=== PATIENT | female | born 1985 | race Caucasian/White ===

== ENCOUNTER → 2017-05-04 12:21 | Outpatient (CLI) | payer MEDICAID, SELFPAY ==
[2017-05-04 12:41] LABS: Basophils # 0.1 K/mm3 (0-0.2); Basophils % 1.1 % (0.1-2.0); Eosinophils # 0.2 K/mm3 (0.0-0.4); Eosinophils % 2.7 % (0.1-12.0); Hematocrit 44.2 % (37.0-47.0); Hemoglobin 14.8 g/dL (12.2-16.2); Lymphocytes # 2.5 K/mm3 (0.7-4.5); Mean Corpuscular HGB Conc 33.6 g/dL (31.8-35.4); Mean Corpuscular Hemoglobin 30.4 pg (27.0-31.2); Mean Corpuscular Volume 90.4 fl (81-99); Mean Platelet Volume 12.1 fl (7.4-10.4); Monocytes # 0.3 K/mm3 (0.1-1.0); Monocytes % 4.2 % (1.7-9.3); Neutrophils # 4.1 K/mm3 (1.8-7.8); Platelet Count 146 K/mm3 (142-424); Red Blood Count 4.89 M/mm3 (4.20-5.40); Red Cell Distribution Width 11.9 % (11.5-17.5); White Blood Count 7.2 K/mm3 (4.8-10.8)
[2017-05-04 14:40] LABS: Alanine Aminotransferase 22 U/L (12-78); Albumin Level 4.2 gm/dL (3.4-5.0); Albumin/Globulin Ratio 1.3 (1.1-1.8); Alkaline Phosphatase 85 U/L (46-116); Anion Gap 15.2 mEq/L (5-15); Aspartate Amino Transferase 10 U/L (15-37); Bilirubin,Total 0.4 mg/dL (0.2-1.0); Blood Urea Nitrogen 11 mg/dL (7-18); Calcium 9.2 mg/dL (8.5-10.1); Carbon Dioxide 27 mmol/L (21.0-32.0); Chloride 105 mmol/L (98-107); Creatinine,Serum 0.57 mg/dL (0.55-1.02); Estimated Glomerular Filt Rate 123 ml/min (>60); GFR (African American) 149 ML/MIN (>60); Globulin 3.2 gm/dl (1.3-3.2); Glucose 84 mg/dL (74-106); Potassium 5.2 mmoL/L (3.5-5.1); Sodium 142 mmol/L (136-145); T4 (Thyroxine) 7.2 ug/dl (4.7-13.3); Thyroid Stimulating Hormone 1.43 uIU/ml (0.358-3.740); Total Protein,Serum 7.4 gm/dL (6.4-8.2)
== END ==
PROVIDERS: PCP Nurse Practitioner Family; Visit Provider Nurse Practitioner Family
DX: R61 Generalized hyperhidrosis (principal)
CPT/HCPCS: 80053; 84436; 84443; 85025

== ENCOUNTER → 2018-02-20 15:46 | Outpatient (CLI) | payer MEDICAID, SELFPAY ==
--- NOTE | 2018-02-20 15:48 | XR_ITS ---
EXAM: XR lumbar spine 2-3V HISTORY: ITS.REASON: Low Back Pain ORDERING PHYSICIAN: Bruce Mora PATIENT AGE: 32 years COMPARISON: None FINDINGS: Normal alignment. No fracture or dislocation. No lytic or blastic change. No significant degenerative change. The disc spaces are preserved. IMPRESSION: No acute finding
== END ==
PROVIDERS: PCP Nurse Practitioner Family; Visit Provider Nurse Practitioner Family
DX: M54.5 Low back pain (principal)
CPT/HCPCS: 72100

== ENCOUNTER → 2020-07-10 07:50 | Outpatient (CLI) | payer OTHER, SELFPAY ==
--- NOTE | 2020-07-10 07:50 | US_ITS ---
PROCEDURE: US TRANSVAGINAL CLINICAL INDICATION: heavy bleeding COMPARISON: US TVP US TRANSVAGINAL PREG from 06/22/2013 FINDINGS: UTERUS: 8 x 5cmx 4cm with a combined endometrial thickness of 6.3mm LEFT OVARY: 3cmx1.4x1.9cm with a volume of 3.45 mL. RIGHT OVARY: 2cmx [id number] with a volume of 3.4ml. Mild focal hyperechoic lesions are noted adjacent to the endometrium measuring up to 0.4 centimeters, may represent polyps. Focal anechoic lesions are noted in the right ovary measuring up to 2 centimeters, likely represents ovarian cyst. Vascularity of the ovaries bilaterally are within normal limits. No free fluid in the pelvic cul-de-sac. IMPRESSION: Possible endometrial polyps measuring up to 0.4 centimeters. Ovarian cyst measuring 2 centimeters. Dictated by: Aydee Solares 07/10/2020 11:22 Aydee Solares in OV 07/10/2020 11:22
== END ==
PROVIDERS: PCP Nurse Practitioner Family; Visit Provider Nurse Practitioner Obstetrics & Gynecology
DX: N92.0 Excessive and frequent menstruation with regular cycle (principal)
CPT/HCPCS: 76830

== ENCOUNTER → 2020-08-12 16:05 | Outpatient (CLI) | payer OTHER, SELFPAY ==
[2020-08-12 17:22] LABS: Basophils # 0.1 K/mm3 (0-0.2); Basophils % 0.9 % (0.1-2.0); Eosinophils # 0.2 K/mm3 (0.0-0.4); Eosinophils % 2.5 % (0.1-12.0); Hematocrit 42.7 % (37.0-47.0); Hemoglobin 14.3 g/dL (12.2-16.2); Lymphocytes # 3.3 K/mm3 (0.7-4.5); Mean Corpuscular HGB Conc 33.5 g/dL (31.8-35.4); Mean Corpuscular Hemoglobin 30.8 pg (27.0-31.2); Mean Corpuscular Volume 91.9 fl (81-99); Mean Platelet Volume 12.3 fl (7.4-10.4); Monocytes # 0.5 K/mm3 (0.1-1.0); Neutrophils # 5.5 K/mm3 (1.8-7.8); Neutrophils % 57.6 % (37.0-80.0); Platelet Count 178 K/mm3 (142-424); Red Blood Count 4.65 M/mm3 (4.20-5.40); Red Cell Distribution Width 12.4 % (11.5-17.5); White Blood Count 9.6 K/mm3 (4.8-10.8)
[2020-08-12 17:58] LABS: Anion Gap 11.1 mEq/L (5-15); Blood Urea Nitrogen 12 mg/dl (7-17); Calcium 9.6 mg/dl (8.4-10.2); Carbon Dioxide 26 mmol/L (22.0-30.0); Chloride 105 mmol/L (98-107); Estimated Glomerular Filt Rate 114 ml/min (>60); GFR (African American) 138 ML/MIN (>60); Glucose 92 mg/dl (74-100); Potassium 4.1 mmoL/L (3.5-5.1); Sodium 138 mmol/L (136-145)
[2020-08-12 18:04] LABS: HCG Qualitative, Serum Negative (Negative)
[2020-08-12 18:16] LABS: Coronavirus 19 IgG Antibody Negative (Negative); Coronavirus 19 IgM Antibody Negative (Negative)
== END ==
PROVIDERS: Visit Provider Nurse Practitioner Obstetrics & Gynecology
DX: Z01.818 Encounter for other preprocedural examination (principal); Z11.52 Encounter for screening for COVID-19; N92.0 Excessive and frequent menstruation with regular cycle
CPT/HCPCS: 36415; 80048; 84703; 85025; 86328

== ENCOUNTER 2020-08-14 08:00 | Day surgery (SDC) | payer OTHER, SELFPAY ==
[2020-08-12 09:20] VITALS: BMI 24.5
[2020-08-14] VITALS (10 sets, daily range): BP systolic 107–144; BP diastolic 63–83; PULSE 59–80; RESP 10–18; TEMP 36.2–36.6; O2SAT 96–100
--- NOTE | 2020-08-14 10:32 | P.OP_ITS ---
Date of procedure: 08/14/20 Pre-op Diagnosis:: Menorrhagia Post-op Diagnosis:: Menorrhagia Procedure performed:: Hysteroscopy, NovaSure ablation Surgeon:: Yannick Knutson MD [employer]:: Other (Jared Wood) Anesthesia: LMA Estimated blood loss (mL): 50 Clinical Note:: She is a 34-year-old lady who complains of extremely heavy periods. After having discussed the risks and benefits she elected to have a hysteroscopy and NovaSure ablation. Operative findings:: She had a normal-appearing anteverted uterus. The uterus sounded to 8 cm. The width was 4.5 cm. She had a normal-appearing endometrium. Both tubal ostia were seen. Operative note:: She was taken to the operating room where LMA anesthesia was found be adequate. She was prepped and draped in the normal sterile fashion in the lithotomy position. A weighted speculum was placed in the vagina and the anterior lip of the cervix was grasped with a tenaculum. The cervix was then dilated to approximately 6 mm. I then inserted a hysteroscope into the uterine cavity and the findings were as previously dictated. . I then sounded the uterus and determine the length of the uterus. This was placed into the NovaSure device. The uterus was found to be 8 cm long. The length of the uterine cavity was 6 cm. The width was 4.5 cm. I then inserted the NovaSure device and determine the width of the endometrial cavity. I then ran the device through its program. I further inspected the endometrial cavity and was found to be completely c harred. I then injected 30 cc of 0.5% ropivacaine at the 3:00, 5:00, 7:00, and 9:00 positions of the cervix. She tolerated procedure well and was taken to the recovery room in excellent condition. All sponge and instrument counts were correct. The estimated blood loss was less than 50 cc. Condition: stable Disposition: PACU Specimens:: None Complications:: None
--- NOTE | 2020-08-14 12:01 | HMH.ANESCL ---
[facility] Anesthesia Checklist - Patient Identification Patient Identification: Arm Band - Structural Data Admitted From: Home Planned Operative Procedure/s: Hysteroscopy D & C, Novasure ablation Consent for Planned Operative Procedure(s) Verified: Yes Verified Documents: Surgical Consent, History and Physical - NPO Status Verified Time NPO: 00:00 - Additional verifications Anesthesia Reactions: No Hx Blood Transfusions: No Blood Transfusion Reaction: No - Anesthesia Plan Anesthesia Risk discussed: Yes Anesthesia Plan: Verified ASA Class: II Anesthesia Type: General [facility] History Medical History: Reports:: Seizures Denies:: Cancer, Diabetes Mellitus Type 1, Diabetes Mellitus Type 2, Internal Pacemaker, MRSA *Have you ever received a pneumonia vaccine?: No *Have you received a flu vaccine this season?: No Other Medical History: Denies: Blood Transfusion Reaction Anesthesia experience/problems:: None Other Surgeries: Yes: Cholecystectomy, , Tubal Ligation, Other. No: Pacemaker Amputation: No Fractures: No - *Social History Last grade of school completed: GED Smoking Status: Current every day smoker Tobacco Type: cigarettes # Packs/Day (cigarettes): 1 Alcohol Intake: current Alcohol Intake Frequency:: a few times a month Substance Use Type: denies use *Occupational Status:: employed Housing: house Household Members: significant other, family, children *Travel in the last 8 weeks: None Family Hx:: Diabetes
--- NOTE | 2020-08-14 12:02 | P.PN_ITS ---
[facility] Anesthesia Record Part I Intake, IV Amount: 800 Estimated blood loss (mL): 50 Urine output (mL): 0 Blood Products used (#): none Blood Pressure: 107/66 SaO2: 99 Pulse Rate: 71 Respiratory Rate: 10 Temperature: 97.3 F Patient is:: Awake, Drowsy Stable to PACU at:: 10:47
--- NOTE | 2020-08-17 11:19 | HMH.ANESII ---
[facility] Anesthesia Record Part II Discharge Time: 11:17 Destination: Surgical Day Care (OP Surgery) PACU nurse assessment reviewed?: Yes Patient Condition:: Good Anesthesia Complications:: None Swallowing reflex intact?: Yes Cyanosis?: No Blood Pressure: 129/82 Pulse Rate: 68 Temperature: 97.3 F Mental Status: Alert & Oriented Pain level:: 0 Nausea and/or vomitting:: None Intake, IV Amount: 0
[2020-08-17 11:20] VITALS: BP 129/82; PULSE 68; TEMP 36.3
== END 2020-08-14 11:48 | disposition home or self-care (01) ==
LOC: OR 08:02
PROVIDERS: PCP Nurse Practitioner Family; Visit Provider Nurse Practitioner Obstetrics & Gynecology
PROC: 0U5B8ZZ Destruction of Endometrium, Via Natural or Artificial Opening Endoscopic (ICD-10-PCS; CPT 58563; principal; 2020-08-14 09:45)
DX: N92.0 Excessive and frequent menstruation with regular cycle (principal); R56.9 Unspecified convulsions; Z72.0 Tobacco use
CPT/HCPCS: 58563; 96374; J2405

== ENCOUNTER 2020-10-27 07:50 | Emergency (ER) | payer OTHER, SELFPAY ==
[2020-10-27 07:50] VITALS: BP 116/82; PULSE 96; RESP 18; TEMP 36.7; O2SAT 98; BMI 23.8
[2020-10-27 08:14] LABS: Adenovirus,PCR Not Detected (NotDetected); Bordetella Pertussis Not Detected (NotDetected); Chlamydophila Pneumoniae, PCR Not Detected (NotDetected); Coronavirus 19, PCR Not Detected (NotDetected); Coronavirus 229E Not Detected (NotDetected); Coronavirus NL63 Not Detected (NotDetected); Coronavirus OC43 Not Detected (NotDetected); Coronovirus HKU1,PCR Not Detected (NotDetected); Human Metapneumovirus Not Detected (NotDetected); Influenza A, PCR Not Detected (NotDetected); Influenza AH1, 2009 Not Detected (NotDetected); Influenza AH1, PCR Not Detected (NotDetected); Influenza AH3,PCR Not Detected (NotDetected); Influenza B, PCR Not Detected (NotDetected); Mycoplasma Pneumoniae, PCR Not Detected (NotDetected); Parainfluenza 1, PCR Not Detected (NotDetected); Parainfluenza 2, PCR Not Detected (NotDetected); Parainfluenza 3, PCR Not Detected (NotDetected); Parainfluenza 4, PCR Not Detected (NotDetected); Respiratory Syncytial Virus Not Detected (NotDetected)
--- NOTE | 2020-10-27 08:14 | HMH.EDGENADL ---
ED Disposition Clinical Impression: Upper respiratory infection Qualifiers: URI type: unspecified URI Qualified Code(s): J06.9 - Acute upper respiratory infection, unspecified Disposition: Home, Self-Care Condition on Discharge: Fair Instructions: DI for Acute Bronchitis, DI for Nasal Congestion Additional Instructions: You have been evaluated for upper respiratory infection. Strep is negative. We will call you with results of the respiratory viral panel. You have been tested for COVID-19. Please self isolate and quarantine. Other viruses are possibly contagious. Please do not go to work until you are feeling better and no longer contagious. Follow-up with your primary care doctor. Prescriptions: Cetirizine HCl 10 mg PO DAILY #30 tab Transmission Status: Pending to [id number] Referrals: Carlos Palma APRN [Primary Care Provider] - Forms: Work/School Release Time of Disposition: 09:06 - Critical Care Critical Care Time: No Attestation: On , the high probability of a clinically significant, sudden or life threatening deterioration of the following system(s) required my full and direct attention, intervention and personal management. The time I documented below is in addition to time spent performing reported procedures but includes the following listed in this critical care notation. Medical Decision Making - Medical Records Medical records reviewed: Yes: I reviewed the patient's medical records. - Keenan Inquiry Pt receiving controlled substance: No Vital Signs: 10/27/20 07:50 Temperature 98.1 F Temperature Source Oral Pulse Rate [Left] 96 H Respiratory Rate 18 Blood Pressure [Right Arm] 116/82 Blood Pressure Mean [Right Arm] 93 Blood Pressure Source [Right Arm] Automatic Cuff 02 Sat by Pulse Oximetry 98 Oxygen Delivery Method Room Air - Lab Data Lab Results 10/27/20 08:15: Group A Strep Rapid Negative Orders (Tests/Meds): ED MEDICATIONS Discontinued Medications Generic Name Dose Route Start Last Admin Trade Name Freq PRN Reason Stop Dose Admin Acetaminophen 325 mg 10/27/20 08:04 10/27/20 08:14 Acetaminophen 325mg Tab PO 10/27/20 08:05 325 mg ONCE ONE Administration Ondansetron HCl 4 mg 10/27/20 08:04 10/27/20 08:14 Ondansetron 4mg Odt SL 10/27/20 08:05 4 mg ONCE ONE Administration ORDERS Category Date Time Status Full Resp Panel w/COVID ([facility]) Routine Lab 10/27/20 07:55 Received Strep Screen Confirmation Stat Micro 10/27/20 08:15 Received Medical Decision Narrative: In summary this is a 35-year-old female presenting to the emergency department with sinus congestion and dry cough. Clinically stable on arrival. Vital signs within normal limits. Most likely diagnosis is viral upper respiratory infection. Cannot exclude strep pharyngitis. 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 Will obtain rapid strep and respiratory viral panel. Rapid strep negative. On reassessment patient clinically stable in the emergency department. Respiratory viral panel takes a few hours for results. Counseled her that we will call her with results. She should self isolate and quarantine. She has been tested for COVID-19. Other viruses may be contagious like RSV. She should not go to work today. Should not go to work tomorrow or longer if RVP positive. General Adult HPI - General Stated complaint: headache, congestion Time Seen by Provider: 10/27/20 08:04 Mode of Arrival: Ambulatory Limitations: No Limitations Description of Symptoms (Recalled from ER Triage Doc. by RN): patient to ED for sore throat and sinus congestion since monday. patient states i feel like my throat is on fire. - History of Present Illness HPI narrative: 35-year-old female presenting to the emergency department with cough, congestion, sore throat. Symptoms started 2 to 3 days ago. She had runny nose and sinus congestion. Now feels
[2020-10-27 08:31] LABS: Strep Scrn Group A (Rapid) Negative (Negative)
[2020-10-27 09:16] VITALS: BP 105/76; PULSE 84; RESP 16; TEMP 36.7; O2SAT 99
[2020-10-27 09:34] LABS: Rhinovirus/Enterovirus Detected (NotDetected)
--- NOTE | 2020-10-27 10:03 | PC.NURSE ---
called patient to inform her the results of her PCR panel. patient states that she will rest and keep hydrated.
== END 2020-10-27 09:17 | disposition home or self-care (01) ==
PROVIDERS: Emergency Provider Emergency Medicine; PCP Nurse Practitioner Family
DX: J06.9 Acute upper respiratory infection, unspecified (principal); R56.9 Unspecified convulsions; F17.210 Nicotine dependence, cigarettes, uncomplicated
CPT/HCPCS: 87430; 87581; 87633; 87798; 99282

== ENCOUNTER 2020-12-03 09:00 | Emergency (ER) | payer OTHER, SELFPAY ==
[2020-12-03 09:01] VITALS: BP 135/75; PULSE 80; RESP 18; TEMP 36.7; O2SAT 98; BMI 24.1
[2020-12-03 09:25] VITALS: BP 133/71; PULSE 84; RESP 18; TEMP 36.8; O2SAT 98
--- NOTE | 2020-12-03 09:25 | HMH.EDUTC ---
[facility] [place] Clinical Impression: Encounter for laboratory testing for COVID-19 virus Disposition: Home, Self-Care Condition on Discharge: Good Instructions: DI for COVID-19 (Suspected or Confirmed ), Coronavirus Disease 2019, Preventing the Spread of Coronavirus Discharge Instructions Additional Instructions: *Monitor Temp, Over the counter Motrin or Tylenol as directed/as needed Tylenol every 4 hours and Motrin every 6 hours (as long as your family doctor has told you that you can take it) for fever or pain. and straight to ER if unable to lower temp less than 101.0 after medication given Follow up IMMEDIATELY for new or worsening symptoms or no Noticeable improvement over the next 48-72 hours. 911 for difficulty breathing or swallowing You were tested for today for COVID19 your test result should be back in the next 24-48 hours, you may call to the [facility] to see if your test results are back in the next 48 hours [phone] [facility] hours are 9am-9pm You was given a handout with instructions for Self Quarantine and Self isolation for while you wait on test results and what to do if they are positive If you are positive the Health Dept will be contacting you also Make sure to take your Vitamins Vit. C Vit D and Zinc if you can take them Referrals: Carlos Palma APRN [Primary Care Provider] - As needed Forms: Work/School Release Time of Disposition: : Medical Decision Making - Keenan Inquiry Pt receiving controlled substance: No Keenan was queried for this patient: No Vital Signs: 12/03/20 09:01 Temperature 98.1 F Temperature Source Oral Pulse Rate [Right] 80 Respiratory Rate 18 Blood Pressure [Right Arm] 135/75 Blood Pressure Mean [Right Arm] 95 02 Sat by Pulse Oximetry 98 Orders (Tests/Meds): ORDERS Category Date Time Status Covid-19 Nasal PCR ([facility]) Routine Lab 12/03/20 09:24 Ordered [facility] [place]PI - General Stated complaint: covid test Time Seen by Provider: 12/03/20 09:25 Mode of Arrival: Family Vehicle Source of Information: Patient Limitations: No Limitations Description of Symptoms (Recalled from Triage Doc. by RN): Patient here for COVID swab. Patient denies any symptoms. Needs clearance for work. HEENT Symptoms (Recalled from RN notes): No Resp Symptoms (Recalled from RN notes): No Skin Symptoms (Recalled from RN notes): No MS Symptoms (Recalled from RN notes): No Functional Status (Recalled from RN notes): na - History of Present Illness Provider Complaint: Patient state that she was recently around student who tested positive for COVID states that they have had her on quarantine and she had to get a neg COVID test before she can return Denies symptoms - Related Data Previous Rx's Medication Instructions Recorded Oxycodone HCl/Acetaminophen 1 tab PO Q4-6H PRN #12 tab 08/14/20 [Percocet 5/325mg tablet] Cetirizine HCl 10 mg PO DAILY #30 tab 10/27/20 Allergies Allergy/AdvReac Type Severity Reaction Status Date / Time hydromorphone [HYDROMORPHONE] Allergy Unknown Verified 08/27/20 08:16 - Worker's Comp Is this a Worker's Comp case?: No Is this an [facility] Worker's Comp?: No Is this a [place] Worker's Comp?: No H History - Hepatitis A Screen Drug use history?: No High risk sexual behaviors?: No History of sexually transmitted infection?: No Currently employed?: No Childcare worker?: No Do you have indoor plumbing?: Yes Do you have electricity?: Yes Attestation statement:: This patient has been screened for Hepatitis A risk factors. I have reviewed the patient's past medical history: Yes Medical History: Reports:: Seizures Denies:: Cancer, Diabetes Mellitus Type 1, Diabetes Mellitus Type 2, Internal Pacemaker, MRSA Other Medical History: Denies: Blood Transfusion Reaction Other Surgeries: Yes: Cholecystectomy, , Tubal Ligation, Other. No: Pacemaker Amputation: No Fractures: No - Social History Smoking Status: Current every day smoker Maxi
== END 2020-12-03 09:30 | disposition home or self-care (01) ==
PROVIDERS: Emergency Provider Nurse Practitioner; PCP Nurse Practitioner Family
DX: Z20.822 Contact with and (suspected) exposure to COVID-19 (principal); F17.210 Nicotine dependence, cigarettes, uncomplicated
CPT/HCPCS: 99202; G0463; U0003

== ENCOUNTER 2020-12-22 08:07 | Emergency (ER) | payer OTHER, SELFPAY ==
[2020-12-22 08:09] VITALS: BP 105/77; PULSE 94; RESP 18; TEMP 36.7; O2SAT 98; BMI 23.8
--- NOTE | 2020-12-22 08:11 | HMH.EDGENADL ---
ED Disposition Clinical Impression: Viral illness Disposition: Left Without Being Seen Condition on Discharge: Good Referrals: Carlos Palma APRN [Primary Care Provider] - Time of Disposition: 10:50 ([place]) - Critical Care Critical Care Time: No Attestation: On , the high probability of a clinically significant, sudden or life threatening deterioration of the following system(s) required my full and direct attention, intervention and personal management. The time I documented below is in addition to time spent performing reported procedures but includes the following listed in this critical care notation. Medical Decision Making - Medical Records Medical records reviewed: Yes: I reviewed the patient's medical records. - Keenan Inquiry Pt receiving controlled substance: No Vital Signs: 12/22/20 08:09 Temperature 98.1 F Temperature Source Oral Pulse Rate [Right Radial] 94 H Respiratory Rate 18 Blood Pressure [Right Arm] 105/77 L Blood Pressure Mean [Right Arm] 86 Blood Pressure Source [Right Arm] Automatic Cuff Blood Pressure Position [Right Arm] Sitting 02 Sat by Pulse Oximetry 98 Oxygen Delivery Method Room Air Orders (Tests/Meds): ORDERS Category Date Time Status Rapid PCR Covid and Flu A/B Stat Lab 12/22/20 08:10 Ordered Strep Scrn Group A (Rapid) Stat Lab 12/22/20 08:20 Received Medical Decision Narrative: 35yo F evaluated for sore throat and fever. Covid swab, flu swab, strep screen are ordered. Patient's physical exam is unremarkable other than lesions to oral mucosa. Went to f/u with pt but she was not in her room. She didn't say anything to staff about stepping out or leaving. General Adult HPI - General Stated complaint: fever, chills, oral blisters Time Seen by Provider: 12/22/20 08:11 Mode of Arrival: Ambulatory - History of Present Illness HPI narrative: 35yo F that denies significant past medical history presents the emergency department secondary to sore throat, mild cough, postnasal drip. She denies myalgia. Reports a fever of 100.3. 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 Patient smokes daily. Took Tylenol at home prior to arrival. Symptoms began in the afternoon yesterday. - Related Data Previous Rx's Medication Instructions Recorded Oxycodone HCl/Acetaminophen 1 tab PO Q4-6H PRN #12 tab 08/14/20 [Percocet 5/325mg tablet] Cetirizine HCl 10 mg PO DAILY #30 tab 10/27/20 Allergies Allergy/AdvReac Type Severity Reaction Status Date / Time hydromorphone [HYDROMORPHONE] Allergy Unknown Verified 08/27/20 08:16 [facility] History - Hepatitis A Screen Drug use history?: No Attestation statement:: This patient has been screened for Hepatitis A risk factors. I have reviewed the patient's past medical history: Yes Medical History: Reports:: Seizures Denies:: Cancer, Diabetes Mellitus Type 1, Diabetes Mellitus Type 2, Internal Pacemaker, MRSA Other Medical History: Denies: Blood Transfusion Reaction Other Surgeries: Yes: Cholecystectomy, , Tubal Ligation, Other. No: Pacemaker Amputation: No Fractures: No - Social History Smoking Status: Current every day smoker Tobacco Type: cigarettes # Packs/Day (cigarettes): 1 Alcohol Intake: current Alcohol Intake Frequency:: a few times a month Substance Use Type: denies use Occupational Status: employed Housing: house Household Members: significant other, family, children Family Hx:: Diabetes ROS Obtained: Yes Systems reviewed as appropriate & no additional complaints Physical Exam - General General appearance: alert, in no apparent distress - Head Head exam: atraumatic - Eye Eye exam: Present: normal appearance - ENT ENT exam: Present: mucous membranes moist, TM's normal bilaterally, normal external ear exam, other (lesion/blister to roof of mouth, erythema and few lesions to posterior pharynx) - Neck Neck exam: Present: normal inspection, full ROM, trachea midline. Absent: tenderne
[2020-12-22 10:30] VITALS: BP 124/78; PULSE 89; RESP 16; TEMP 36.7; O2SAT 97
== END 2020-12-22 10:31 | disposition left against medical advice (07) ==
PROVIDERS: Emergency Provider Family Medicine; PCP Nurse Practitioner Family
DX: Z53.21 Procedure and treatment not carried out due to patient leaving prior to being seen by health care provider (principal)
CPT/HCPCS: 99211

== ENCOUNTER → 2020-12-22 19:57 | Outpatient (CLI) | payer OTHER, SELFPAY | PROVIDERS: Visit Provider Nurse Practitioner Family | DX: Z20.822 Contact with and (suspected) exposure to COVID-19 (principal) | CPT/HCPCS: C9803; U0003; U0005 ==

== ENCOUNTER → 2021-04-10 14:43 | Outpatient (CLI) | payer OTHER, SELFPAY | PROVIDERS: PCP Nurse Practitioner Family; Visit Provider Nurse Practitioner Family | DX: U07.1 COVID-19 (principal) | CPT/HCPCS: C9803; U0003; U0005 ==

== ENCOUNTER 2021-04-16 13:50 | Emergency (ER) | payer OTHER, SELFPAY ==
[2021-04-16 13:52] VITALS: BP 102/79; PULSE 62; RESP 18; TEMP 37; O2SAT 100; BMI 23.8
[2021-04-16 14:12] VITALS: BMI 23.8
--- NOTE | 2021-04-16 14:13 | CT_ITS ---
FINAL REPORT TECHNIQUE: Thin section axial images were obtained from the lung bases to the pubic symphysis without IV contrast. CLINICAL HISTORY: left flank pain FINDINGS: There is an obstructing 3 mm distal left ureteral stone with moderate hydronephrosis. There is a nonobstructing left renal stone. There are no right renal or ureteral stones or hydronephrosis. There has been cholecystectomy. The remaining unenhanced solid abdominal organs are unremarkable. There is no evidence of small bowel obstruction. The appendix is not identified but there are no secondary signs suggesting appendicitis. There is diverticulosis without evidence of diverticulitis. There is no lymphadenopathy. There is physiologic free fluid. No acute osseous abnormality is identified. IMPRESSION: Obstructing 3 mm distal left ureteral stone. Nonobstructing left renal stone. Reviewed, Interpreted and Dictated by Akiko Rapp MD Transcribed by Steven Foss Authenticated by Akiko Rapp MD on 04/16/2021 03:50:57 PM [facility]
[2021-04-16 14:33] LABS: Alanine Aminotransferase 16 U/L (12-78); Albumin Level 4.5 g/dl (3.5-5.0); Albumin/Globulin Ratio 1.5 (1.1-1.8); Alkaline Phosphatase 80 U/L (38-126); Anion Gap 14.6 mEq/L (5-15); Aspartate Amino Transferase 22 U/L (14-36); Bilirubin,Total 0.7 mg/dl (0.2-1.3); Blood Urea Nitrogen 7 mg/dl (7-17); Calcium 9.3 mg/dl (8.4-10.2); Carbon Dioxide 21 mmol/L (22.0-30.0); Chloride 105 mmol/L (98-107); Creatinine Clearance Estimated 121 mL/min (50-200); Estimated Glomerular Filt Rate 113 ml/min (>60); GFR (African American) 137 ML/MIN (>60); Globulin 3.1 g/dL (1.3-3.2); Glucose 103 mg/dl (74-100); Potassium 3.6 mmoL/L (3.5-5.1); Sodium 137 mmol/L (136-145); Total Protein,Serum 7.6 g/dl (6.3-8.2)
[2021-04-16 14:34] LABS: Basophils # 0.1 K/mm3 (0-0.2); Basophils % 0.8 % (0.1-2.0); Eosinophils # 0.1 K/mm3 (0.0-0.4); Eosinophils % 1.3 % (0.1-12.0); Hematocrit 46.1 % (37.0-47.0); Lymphocytes # 1.9 K/mm3 (0.7-4.5); Lymphocytes % 18.1 % (10-50); Mean Corpuscular HGB Conc 32.5 g/dL (31.8-35.4); Mean Corpuscular Hemoglobin 30.1 pg (27.0-31.2); Mean Corpuscular Volume 92.7 fl (81-99); Mean Platelet Volume 12.1 fl (7.4-10.4); Monocytes # 0.4 K/mm3 (0.1-1.0); Monocytes % 3.6 % (1.7-9.3); Neutrophils % 76.2 % (37.0-80.0); Platelet Count 193 K/mm3 (142-424); Red Blood Count 4.98 M/mm3 (4.20-5.40); Red Cell Distribution Width 12.3 % (11.5-17.5); White Blood Count 10.5 K/mm3 (4.8-10.8)
[2021-04-16 14:43] LABS: Microscopic, Urine URINE MICROSCOPIC (MICROSCOPIC)
[2021-04-16 14:47] LABS: Appearance,Urine CLEAR (Clear); Bilirubin,Urine Negative (Negative); Blood, Urine 2+ (Negative); Color,Urine YELLOW (Yellow); Glucose,Urine (UA) Negative (Negative); Ketones,Urine Negative (Negative); Leukocyte Esterase,Urine Negative (Negative); Nitrate,Urine Negative (Negative); Protein,Urine Negative (Negative); Specific Gravity, Urine <= 1.005 (1.005-1.030); Urobilinogen,Urine 0.2 EU/dl (0.2)
[2021-04-16 15:00] LABS: Bacteria,Urine Trace /lpf; WBC,Urine Occasional #/hpf (0-3)
--- NOTE | 2021-04-16 15:41 | HMH.EDGENADL ---
ED Disposition Clinical Impression: Left ureteral calculus, Nephrolithiasis Disposition: Home, Self-Care Condition on Discharge: Good Instructions: DI for Kidney Stones Additional Instructions: Percocet and Toradol as needed for pain. Zofran as needed for nausea and vomiting. Flomax as prescribed. Additional instructions for KIDNEY STONE (URETERAL CALCULUS): See Dr. Hair as soon as possible for further evaluation, call for appointment. Drink plenty of fluids. Strain your urine and save any stones you catch. Return immediately if you develop a fever or have uncontrollable vomiting or uncontrollable pain. Prescriptions: Oxycodone HCl/Acetaminophen [Percocet 5/325mg tablet] 1 tab PO Q6HP PRN #10 tab PRN Reason: Moderate To Severe Pain Transmission Status: Sent to [facility] Ketorolac Tromethamine [Toradol 10mg tablet] 10 mg PO Q6HP PRN #10 tab PRN Reason: Moderate Pain Transmission Status: Pending to [facility] Tamsulosin HCl [Flomax 0.4mg capsule] 0.4 mg PO HS #10 cap Transmission Status: Pending to [facility] Ondansetron [Zofran 4mg ODT] 4 mg PO TIDP PRN #10 tab PRN Reason: Nausea And Vomiting Transmission Status: Pending to [facility] Referrals: Carlos Palma APRN [Primary Care Provider] - Joo Hair MD [Staff Physician] - - Critical Care Critical Care Time: No Attestation: On 04/16/21, the high probability of a clinically significant, sudden or life threatening deterioration of the following system(s) required my full and direct attention, intervention and personal management. The time I documented below is in addition to time spent performing reported procedures but includes the following listed in this critical care notation. Medical Decision Making - Keenan Inquiry Pt receiving controlled substance: Yes Keenan was queried for this patient: Yes Risks and benefits of using a controlled substance: were discussed with pt by me Vital Signs: 04/16/21 13:52 Temperature 98.6 F Temperature Source Oral Pulse Rate [Left Radial] 62 Respiratory Rate 18 Blood Pressure [Right Arm] 102/79 L Blood Pressure Mean [Right Arm] 86 Blood Pressure Source [Right Arm] Automatic Cuff Blood Pressure Position [Right Arm] Sitting 02 Sat by Pulse Oximetry 100 Oxygen Delivery Method Room Air - Lab Data Lab Results 04/16/21 14:05: WBC 10.5, RBC 4.98, Hgb 15.0, Hct 46.1, MCV 92.7, MCH 30.1, MCHC 32.5, RDW 12.3, Plt Count 193, MPV 12.1 H, Neut % (Auto) 76.2, Lymph % (Auto) 18.1, [place] % (Auto) 3.6, Eos % (Auto) 1.3, Baso % (Auto) 0.8, Neut # (Auto) 8.0 H, Lymph # (Auto) 1.9, [place] # (Auto) 0.4, Eos # (Auto) 0.1, Baso # (Auto) 0.1 04/16/21 14:05: Sodium 137, Potassium 3.6, Chloride 105, Carbon Dioxide 21 L, Anion Gap 14.6, BUN 7, Creatinine 0.60, Estimated Creat Clear 121, Estimated GFR 113, Est GFR ( Amer) 137, Glucose 103 H, Calcium 9.3, Total Bilirubin 0.7, AST 22, ALT 16, Alkaline Phosphatase 80, Total Protein 7.6, Albumin 4.5, Globulin 3.1, Albumin/Globulin Ratio 1.5 04/16/21 14:13: Urine Color Yellow, Urine Appearance Clear, Urine pH 7.0, Ur Specific [place] <= 1.005, Urine Protein Negative, Urine Glucose (UA) Negative, Urine Ketones Negative, Urine Blood 2+, Urine Nitrate Negative, Urine Bilirubin Negative, Urine Urobilinogen 0.2, Ur Leukocyte Esterase Negative, Urine RBC 3-5, Urine WBC Occasional, Ur Squamous Epith Cells 3-5, Urine Bacteria Trace Result diagrams: 04/16/21 14:05 04/16/21 14:05 Orders (Tests/Meds): ED MEDICATIONS Discontinued Medications Generic Name Dose Route Start Last Admin Trade Name Freq PRN Reason Stop Dose Admin Sodium Chloride 1,000 mls @ 999 mls/hr 04/16/21 14:15 04/16/21 14:14 Sod Chlor 0.9% 1000ml Bag IV 04/16/21 15:15 999 mls/hr .Q1H1M LITA Administration Ketorolac Tromethamine 30 mg 04/16/21 14:13 04/16/21 14:14 Ketorolac 30mg/Ml Vial IV 04/16/21 14:14 30 mg ONCE ONE Administr
[2021-04-16 16:12] VITALS: BP 125/71; PULSE 62; O2SAT 97
[2021-04-16 16:19] LABS: Urine Pregnancy, HCG Qual. Negative (Negative)
[2021-04-16 16:38] VITALS: BP 102/69; PULSE 59; RESP 19; TEMP 37; O2SAT 98
== END 2021-04-16 16:39 | disposition home or self-care (01) ==
PROVIDERS: Emergency Provider Emergency Medicine; PCP Nurse Practitioner Family
DX: N20.1 Calculus of ureter (principal)
CPT/HCPCS: 74176; 80053; 81001; 81025; 85025; 96365; 96375; 96376; 99283; J2405

== ENCOUNTER 2021-04-17 19:06 | Emergency (ER) | payer OTHER, SELFPAY ==
[2021-04-17 20:35] VITALS: BP 122/82; PULSE 89; RESP 19; TEMP 37; O2SAT 98; BMI 22.6
[2021-04-17 20:50] VITALS: BP 122/82; PULSE 89; RESP 19; TEMP 37; O2SAT 98
--- NOTE | 2021-04-17 20:53 | HMH.EDUTC ---
[facility] [place] Clinical Impression: Encounter for laboratory testing for COVID-19 virus Disposition: Home, Self-Care Condition on Discharge: Good Instructions: DI for COVID-19 (Suspected or Confirmed ), Preventing the Spread of Coronavirus Discharge Instructions Additional Instructions: *Monitor Temp, Over the counter Motrin or Tylenol as directed/as needed Tylenol every 4 hours and Motrin every 6 hours (as long as your family doctor has told you that you can take it) for fever or pain. and straight to ER if unable to lower temp less than 101.0 after medication given Follow up IMMEDIATELY for new or worsening symptoms or no Noticeable improvement over the next 48-72 hours. 911 for difficulty breathing or swallowing You were tested for today for COVID19 your test result should be back in the next 24-48 hours, you may check your results on the [facility] My Health Portal if you have trouble logging on you may call You was given a handout with instructions for Self Quarantine and Self isolation for while you wait on test results and what to do if they are positive If you are positive the Health Dept will be contacting you also Make sure to take your Vitamins Vit. C Vit D and Zinc if you can take them Referrals: Carlos Palma APRN [Primary Care Provider] - Forms: Work/School Release Medical Decision Making - Keenan Inquiry Pt receiving controlled substance: No Keenan was queried for this patient: No Vital Signs: 04/17/21 20:35 Temperature 98.6 F Temperature Source Oral Pulse Rate [Right Brachial] 89 Respiratory Rate 19 Blood Pressure [Right Arm] 122/82 Blood Pressure Mean [Right Arm] 95 Blood Pressure Source [Right Arm] Automatic Cuff Blood Pressure Position [Right Arm] Sitting 02 Sat by Pulse Oximetry 98 Oxygen Delivery Method Room Air Orders (Tests/Meds): ORDERS Category Date Time Status Covid-19 Nasal PCR ([facility]) Routine Lab 04/17/21 20:50 Received [facility] [place] - General Stated complaint: covid test Time Seen by Provider: 04/17/21 20:54 Mode of Arrival: Ambulatory Source of Information: Patient Limitations: No Limitations Description of Symptoms (Recalled from Triage Doc. by RN): PATIENT NEEDING COVID TEST TO RETURN TO WORK. TEST POSITIVE 04/10/21 HEENT Symptoms (Recalled from RN notes): No Resp Symptoms (Recalled from RN notes): No Skin Symptoms (Recalled from RN notes): No MS Symptoms (Recalled from RN notes): No Functional Status (Recalled from RN notes): WNL - History of Present Illness Provider Complaint: Patient state that her job is making her get tested again State that she tested positive last week and they are requiring her to have a negative COVID test to return State that she is feeling much better and no longer having any symptoms so she came in to get tested - Related Data Previous Rx's Medication Instructions Recorded Ketorolac Tromethamine [Toradol 10 mg PO Q6HP PRN #10 tab 04/16/21 10mg tablet] Ondansetron [Zofran 4mg ODT] 4 mg PO TIDP PRN #10 tab 04/16/21 Oxycodone HCl/Acetaminophen 1 tab PO Q6HP PRN #10 tab 04/16/21 [Percocet 5/325mg tablet] Tamsulosin HCl [Flomax 0.4mg 0.4 mg PO HS #10 cap 04/16/21 capsule] Allergies Allergy/AdvReac Type Severity Reaction Status Date / Time hydromorphone [HYDROMORPHONE] Allergy Unknown Verified 12/22/20 11:50 - Worker's Comp Is this a Worker's Comp case?: No [facility] History - Hepatitis A Screen Drug use history?: No High risk sexual behaviors?: No History of sexually transmitted infection?: No Currently employed?: No Childcare worker?: No Do you have indoor plumbing?: Yes Do you have electricity?: Yes Attestation statement:: This patient has been screened for Hepatitis A risk factors. I have reviewed the patient's past medical history: Yes Medical History: Reports:: Seizures Denies:: Cancer, Diabetes Mellitus Type 1, Diabetes Mellitus Type 2, Internal Pacemaker, MRSA Other Medical History: Isidro
== END 2021-04-17 20:54 | disposition home or self-care (01) ==
PROVIDERS: Emergency Provider Nurse Practitioner; PCP Nurse Practitioner Family
DX: U07.1 COVID-19 (principal)
CPT/HCPCS: 99202; C9803; G0463; U0003; U0005

== ENCOUNTER → 2021-04-20 13:32 | Outpatient (CLI) | payer OTHER, SELFPAY | PROVIDERS: Visit Provider Nurse Practitioner | DX: U07.1 COVID-19 (principal) | CPT/HCPCS: C9803; U0003; U0005 ==

== ENCOUNTER 2021-04-25 14:08 | Emergency (ER) | payer OTHER, SELFPAY ==
[2021-04-25 16:12] VITALS: BP 118/94; PULSE 68; RESP 14; TEMP 36.6; O2SAT 99; BMI 23.8
--- NOTE | 2021-04-25 16:50 | HMH.EDUTC ---
[facility] [place] [facility] [place] Clinical Impression: History of COVID-19 Disposition: Home, Self-Care Condition on Discharge: Good Instructions: DI for COVID-19 (Suspected or Confirmed ), Preventing the Spread of Coronavirus Discharge Instructions Additional Instructions: Going by the [facility] guide lines, she should be allowed to return to work today regardless of the status of her covid-19 test. Referrals: Carlos Palma APRN [Primary Care Provider] - Forms: Work/School Release Time of Disposition: 17:00 Medical Decision Making - Medical Records Medical records reviewed: No: I reviewed the patient's medical records. - Keenan Inquiry Pt receiving controlled substance: No Vital Signs: 04/25/21 16:12 04/25/21 17:06 Temperature 98 F 98 F Temperature Source Oral Pulse Rate 68 Pulse Rate [Left] 68 Respiratory Rate 14 14 Blood Pressure 118/94 H Blood Pressure [Right Arm] 118/94 H Blood Pressure Mean [Right Arm] 102 02 Sat by Pulse Oximetry 99 - Lab Data Lab results reviewed: Yes: I reviewed the patient's lab results. [facility] [place] - General Stated complaint: covid test Time Seen by Provider: 04/25/21 16:50 Mode of Arrival: Ambulatory Source of Information: Patient Limitations: No Limitations Description of Symptoms (Recalled from Triage Doc. by RN): pt had a positive covid test on 04/10. pt reports her work requires a negative test before returning. we explained that most like it would still show positive. HEENT Symptoms (Recalled from RN notes): No Resp Symptoms (Recalled from RN notes): No Skin Symptoms (Recalled from RN notes): No MS Symptoms (Recalled from RN notes): No Functional Status (Recalled from RN notes): wnl - History of Present Illness Provider Complaint: She tested positve for covid-19 on apr 10. She has not had any symptoms in over the past week. Her work wants a negative test before she can go back to work. - Related Data Previous Rx's Medication Instructions Recorded Ketorolac Tromethamine [Toradol 10 mg PO Q6HP PRN #10 tab 04/16/21 10mg tablet] Ondansetron [Zofran 4mg ODT] 4 mg PO TIDP PRN #10 tab 04/16/21 Oxycodone HCl/Acetaminophen 1 tab PO Q6HP PRN #10 tab 04/16/21 [Percocet 5/325mg tablet] Tamsulosin HCl [Flomax 0.4mg 0.4 mg PO HS #10 cap 04/16/21 capsule] Allergies Allergy/AdvReac Type Severity Reaction Status Date / Time hydromorphone [HYDROMORPHONE] Allergy Unknown Verified 12/22/20 11:50 - Worker's Comp Is this a Worker's Comp case?: No [facility] History - Hepatitis A Screen Drug use history?: No High risk sexual behaviors?: No History of sexually transmitted infection?: No Currently employed?: No Childcare worker?: No Do you have indoor plumbing?: Yes Do you have electricity?: Yes Attestation statement:: This patient has been screened for Hepatitis A risk factors. I have reviewed the patient's past medical history: Yes Medical History: Reports:: Seizures Denies:: Cancer, Diabetes Mellitus Type 1, Diabetes Mellitus Type 2, Internal Pacemaker, MRSA Other Medical History: Denies: Blood Transfusion Reaction Other Surgeries: Yes: Cholecystectomy, , Tubal Ligation, Other. No: Pacemaker Amputation: No Fractures: No Comment: uterine ablation - Social History Smoking Status: Current every day smoker Tobacco Type: cigarettes # Packs/Day (cigarettes): 1 Alcohol Intake: current Alcohol Intake Frequency:: a few times a month Substance Use Type: denies use Occupational Status: employed Housing: house Household Members: significant other, family, children Family Hx:: Diabetes ROS Obtained: Yes All systems reviewed & no additional complaints - Constitutional Constitutional: Reports system reviewed and no additional complaints, except as docu - Eyes Eyes: Reports system reviewed and no additional complaints, except as docu - ENT Ears, Nose, Mouth, and Throat: Reports system reviewed and no additional complaints, except as docu - Cardi
[2021-04-25 17:06] VITALS: BP 118/94; PULSE 68; RESP 14; TEMP 36.6
== END 2021-04-25 17:07 | disposition home or self-care (01) ==
PROVIDERS: Emergency Provider Nurse Practitioner Family; PCP Nurse Practitioner Family
DX: Z86.16 Personal history of COVID-19 (principal)
CPT/HCPCS: 99202; C9803; G0463; U0003; U0005

== ENCOUNTER 2021-11-08 09:36 | Emergency (ER) | payer OTHER, SELFPAY ==
[2021-11-08 09:45] VITALS: BP 118/75; PULSE 74; RESP 18; TEMP 36.7; O2SAT 97; BMI 23.8
[2021-11-08 10:00] VITALS: BP 118/75; PULSE 74; RESP 18; TEMP 36.7; O2SAT 97
--- NOTE | 2021-11-08 10:01 | HMH.EDUTC ---
[facility] [place]ression: Encounter for laboratory testing for COVID-19 virus Disposition: Home, Self-Care Condition on Discharge: Good Instructions: DI for COVID-19 (Suspected or Confirmed ), Preventing the Spread of Coronavirus Discharge Instructions Additional Instructions: *Monitor Temp, Over the counter Motrin or Tylenol as directed/as needed Tylenol every 4 hours and Motrin every 6 hours (as long as your family doctor has told you that you can take it) for fever or pain. and straight to ER if unable to lower temp less than 101.0 after medication given *Warm salt water gargles may help to soothe the throat *Throat Lozenges *Warm fluids like tea with honey may help to soothe the throat *Sleep elevated *Humidifier/Vaporizer Follow up IMMEDIATELY for new or worsening symptoms or no Noticeable improvement over the next 48-72 hours. 911 for difficulty breathing or swallowing You were tested for today for COVID19 your test result should be back in the next 24-48 hours, you may check your results on the [facility] My Health Portal Make sure to take your Vitamins Vit. C Vit D and Zinc if you can take them Referrals: Carlos Palma APRN [Primary Care Provider] - As needed Forms: Work/School Release Medical Decision Making - Keenan Inquiry Pt receiving controlled substance: No Keenan was queried for this patient: No Vital Signs: 11/08/21 09:45 11/08/21 10:00 Temperature 98.1 F 98.1 F Temperature Source Oral Pulse Rate 74 Pulse Rate [Left Brachial] 74 Respiratory Rate 18 18 Blood Pressure 118/75 Blood Pressure [Left Arm] 118/75 Blood Pressure Mean [Left Arm] 89 Blood Pressure Source [Left Arm] Automatic Cuff Blood Pressure Position [Left Arm] Sitting 02 Sat by Pulse Oximetry 97 Oxygen Delivery Method Room Air Orders (Tests/Meds): ORDERS Category Date Time Status Covid-19 Nasal PCR ([facility]) Routine Lab 11/08/21 09:45 [place] [facility] [place] - General Stated complaint: covid test Time Seen by Provider: 11/08/21 10:01 Mode of Arrival: Ambulatory Source of Information: Patient Limitations: No Limitations Description of Symptoms (Recalled from Triage Doc. by RN): PATIENT C/O HEADACHES, CHILLS, NAUSEA, BODY ACHES, HEAD CONGESTION, SORE THROAT SINCE MONDAY. RECENTLY EXPOSED TO COVID HEENT Symptoms (Recalled from RN notes): Yes Resp Symptoms (Recalled from RN notes): No Skin Symptoms (Recalled from RN notes): No MS Symptoms (Recalled from RN notes): No Functional Status (Recalled from RN notes): WNL - History of Present Illness Provider Complaint: Patient states that she was recently exposed to COVID States that she is now having symptoms an wanted to get tested States that she has been having scratchy throat, nausea, bodyaches, chills, nasal congestion and headache so she came in to get tested - Related Data Allergies Allergy/AdvReac Type Severity Reaction Status Date / Time hydromorphone [HYDROMORPHONE] Allergy Unknown Verified 12/22/20 11:50 - Worker's Comp Is this a Worker's Comp case?: No [facility] History - Hepatitis A Screen Attestation statement:: This patient has been screened for Hepatitis A risk factors. I have reviewed the patient's past medical history: Yes Medical History: Reports:: Seizures Denies:: Cancer, Diabetes Mellitus Type 1, Diabetes Mellitus Type 2, Internal Pacemaker, MRSA Other Medical History: Denies: Blood Transfusion Reaction Other Surgeries: Yes: Cholecystectomy, , Tubal Ligation, Other. No: Pacemaker Amputation: No Fractures: No Comment: uterine ablation - Social History Smoking Status: Current every day smoker Tobacco Type: cigarettes # Packs/Day (cigarettes): 1 Alcohol Intake: never Alcohol Intake Frequency:: a few times a month Substance Use Type: denies use Occupational Status: other Housing: house Household Members: significant other, family, children Family Hx:: Diabetes ROS Obtained: Yes All systems reviewed & no addit
== END 2021-11-08 10:06 | disposition home or self-care (01) ==
PROVIDERS: Emergency Provider Nurse Practitioner; PCP Nurse Practitioner Family
DX: Z20.822 Contact with and (suspected) exposure to COVID-19 (principal); R51.9 Headache, unspecified; R68.83 Chills (without fever); R11.0 Nausea; M79.10 Myalgia, unspecified site; R09.81 Nasal congestion; J02.9 Acute pharyngitis, unspecified; F17.210 Nicotine dependence, cigarettes, uncomplicated
CPT/HCPCS: 99212; C9803; G0463; U0003; U0005

== ENCOUNTER → 2022-02-21 14:51 | Outpatient (CLI) | payer OTHER, SELFPAY | PROVIDERS: PCP Nurse Practitioner Family; Visit Provider Nurse Practitioner | DX: Z02.9 Encounter for administrative examinations, unspecified (principal); Z11.1 Encounter for screening for respiratory tuberculosis ==

== ENCOUNTER 2022-12-05 19:32 | Emergency (ER) | payer OTHER, SELFPAY ==
[2022-12-05 19:40] VITALS: BP 154/84; PULSE 76; RESP 19; TEMP 37.3; O2SAT 100; BMI 22.3
--- NOTE | 2022-12-05 19:49 | EXP.UTC ---
Discharge Plan Disposition Patient Disposition: Home, Self-Care Condition: Good Prescriptions Prescriptions: New ondansetron 4 mg Tablet,Disintegrating 4 mg PO Q8H PRN (Reason: Nausea) Qty: 12 0RF Referrals Follow up/Referrals: Morena Manley PA [Primary Care Provider] - See instructions Activity Restrictions/Add. Instructions Additional Instructions/Restrictions: Drink plenty of fluids. Take tylenol for pain or fever. Follow up with your regular doctor. GO TO THE ER FOR ANY WORSENING SYMPTOMS Clinical Impressions Clinical Impression: Acute viral syndrome Stand Alone Forms Stand Alone Forms: Work/School Release Instructions Patient Instructions: DI for Viral Syndrome, Coronavirus Disease 2019, Preventing the Spread of Coronavirus Discharge Instructions Discharge ED Provider: Dc Xiao [facility] General Stated complaint: body ache, chills, blisters in mouth, diarrhea Mode of Arrival: EMS Source of Information: Patient Limitations: No Limitations Time Seen by Provider: 12/05/22 19:49 Description of Symptoms (Recalled from Triage Doc. by RN): PATIENT C/O BODY ACHES, CHILLS, AND FEVER BLISTERS X 2 DAYS HEENT Symptoms (Recalled from RN notes): Yes Resp Symptoms (Recalled from RN notes): No Skin Symptoms (Recalled from RN notes): No MS Symptoms (Recalled from RN notes): No Functional Status (Recalled from RN notes): WNL History of Present Illness Provider Complaint: She states that for the past 2 days she has had chills, body aches, malaise, n/v, and a scratchy throat. Related Data Previous Rx's Medication Instructions Recorded ondansetron 4 mg disintegrating 4 mg PO Q8H PRN Nausea #12 tabs 12/05/22 tablet Allergies Allergy/AdvReac Type Severity Reaction Status Date / Time hydromorphone [HYDROMORPHONE] Allergy Unknown Verified 12/22/20 11:50 Worker's Comp Is this a Worker's Comp case?: No [facility] Disclaimer: The information contained in this section may have been updated after the patient was seen, as this information can be updated by other users. 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 caffeine: Yes ROS Obtained: Yes All systems reviewed & no additional complaints except as documented Constitutional Constitutional: Reports chills and Reports fever(s) Eyes Eyes: Denies eye discharge ENT Ears, Nose, Mouth, and Throat: Reports as per HPI Cardiovascular Cardiovascular: Denies chest pain Respiratory Respiratory: Denies chest congestion and Reports cough Gastrointestinal Gastrointestingal: Reports nausea; Denies abdominal pain, constipation, cramping, diarrhea or vomiting Musculoskeletal Musculoskeletal: Denies arthralgias Integumentary/Breasts Skin/Breast: Denies rash Neurologic Neurologic: Denies paresthesias Physical Exam General General appearance: alert and in no apparent distress Head Head exam: atraumatic, normocephalic and normal inspection Eye Eye exam: Present normal appearance, PERRL and EOMI ENT ENT exam: Present normal exam, normal oropharynx, mucous membranes moist, TM's normal bilaterally and normal external ear exam Neck Neck exam: Present normal inspection, full ROM and trachea midline; Absent meningismus or lymphadenopathy Chest Chest inspection: Present normal inspection and symmetric chest wall rise; Absent tenderness Respiratory Respiratory exam: Present normal lung sounds bilaterally; Absent respiratory distress Cardiovascular Cardiovascular exam: Present regular rate and normal rhythm; Absent JVD Abdomi
[2022-12-05 19:58] LABS: UTC Influenza A Antigen Negative (Negative)
[2022-12-05 19:59] LABS: UTC Influenza B Antigen Negative (Negative)
[2022-12-05 20:03] VITALS: BP 154/84; PULSE 76; RESP 19; TEMP 37.3; O2SAT 100
== END 2022-12-05 20:11 | disposition home or self-care (01) ==
PROVIDERS: Emergency Provider Nurse Practitioner Family; PCP Physician Assistant
DX: R11.2 Nausea with vomiting, unspecified (principal); R53.81 Other malaise; B34.9 Viral infection, unspecified; F17.210 Nicotine dependence, cigarettes, uncomplicated
CPT/HCPCS: 87804; 99212; 99214; G0463

== ENCOUNTER → 2022-12-28 10:19 | Outpatient (CLI) | payer OTHER, SELFPAY ==
[2022-12-06 18:17] LABS: Adenovirus,PCR Not Detected (NotDetected); Bordetella Pertussis Not Detected (NotDetected); Chlamydophila Pneumoniae, PCR Not Detected (NotDetected); Coronavirus 19, PCR Not Detected (NotDetected); Coronavirus 229E Not Detected (NotDetected); Coronavirus NL63 Not Detected (NotDetected); Coronavirus OC43 Not Detected (NotDetected); Coronovirus HKU1,PCR Not Detected (NotDetected); Human Metapneumovirus Not Detected (NotDetected); Influenza A, PCR Not Detected (NotDetected); Influenza AH1, 2009 Not Detected (NotDetected); Influenza AH1, PCR Not Detected (NotDetected); Influenza AH3,PCR Not Detected (NotDetected); Influenza B, PCR Not Detected (NotDetected); Mycoplasma Pneumoniae, PCR Not Detected (NotDetected); Parainfluenza 1, PCR Not Detected (NotDetected); Parainfluenza 2, PCR Not Detected (NotDetected); Parainfluenza 3, PCR Not Detected (NotDetected); Parainfluenza 4, PCR Not Detected (NotDetected); Respiratory Syncytial Virus Not Detected (NotDetected); Rhinovirus/Enterovirus Not Detected (NotDetected)
[2022-12-06 18:38] LABS: Basophils # 0.1 K/mm3 (0-0.2); Basophils % 0.7 % (0.1-2.0); Eosinophils # 0.3 K/mm3 (0.0-0.4); Eosinophils % 3.7 % (0.1-12.0); Hematocrit 45.8 % (37.0-47.0); Hemoglobin 15.2 g/dL (12.2-16.2); Lymphocytes # 2.8 K/mm3 (0.7-4.5); Lymphocytes % 35.4 % (10-50); Mean Corpuscular HGB Conc 33.2 g/dL (31.8-35.4); Mean Corpuscular Hemoglobin 30.6 pg (27.0-31.2); Mean Corpuscular Volume 92.2 fl (81-99); Mean Platelet Volume 14.1 fl (7.4-10.4); Monocytes # 0.4 K/mm3 (0.1-1.0); Monocytes % 4.6 % (1.7-9.3); Neutrophils # 4.4 K/mm3 (1.8-7.8); Neutrophils % 55.6 % (37.0-80.0); Platelet Count 184 K/mm3 (142-424); Red Blood Count 4.97 M/mm3 (4.20-5.40); Red Cell Distribution Width 12.4 % (11.5-17.5)
[2022-12-06 18:59] LABS: Alanine Aminotransferase 17 U/L (12-78); Albumin Level 4.7 g/dl (3.5-5.0); Albumin/Globulin Ratio 1.7 (1.1-1.8); Alkaline Phosphatase 75 U/L (38-126); Anion Gap 17.3 mEq/L (5-15); Aspartate Amino Transferase 21 U/L (14-36); Bilirubin,Total 0.8 mg/dl (0.2-1.3); Blood Urea Nitrogen 12 mg/dl (7-17); Calcium 9.6 mg/dl (8.4-10.2); Carbon Dioxide 21 mmol/L (22.0-30.0); Chloride 108 mmol/L (98-107); Chol/HDL Ratio 7.1 (1-3.5); Cholesterol 257 mg/dl (140-200); Estimated Glomerular Filt Rate 112 ml/min (>60); GFR (African American) 135 ML/MIN (>60); Globulin 2.7 g/dL (1.3-3.2); Glucose 76 mg/dl (74-100); HDL Cholesterol 36 mg/dl (40-60); Potassium 4.3 mmoL/L (3.5-5.1); Sodium 142 mmol/L (136-145); Total Protein,Serum 7.4 g/dl (6.3-8.2); Triglycerides 187 mg/dl (30-150); VLDL Cholesterol 37 mg/dL (0-40)
[2022-12-06 19:10] LABS: Direct LDL Cholesterol 158.58 mg/dL (100-129)
[2022-12-06 19:30] LABS: Thyroid Stimulating Hormone 1.02 uIU/mL (0.465-4.68)
== END ==
PROVIDERS: PCP Student in an Organized Health Care Education/Training Program; Visit Provider Student in an Organized Health Care Education/Training Program
DX: R53.83 Other fatigue (principal); J02.9 Acute pharyngitis, unspecified; R05.9 Cough, unspecified; R50.9 Fever, unspecified; R09.82 Postnasal drip; R11.2 Nausea with vomiting, unspecified; R09.89 Other specified symptoms and signs involving the circulatory and respiratory systems
CPT/HCPCS: 80053; 80061; 82306; 84443; 85025; 87581; 87632; 87798

== ENCOUNTER 2023-05-21 08:12 | Emergency (ER) | payer OTHER, SELFPAY ==
[2023-05-21 08:26] VITALS: BP 120/81; PULSE 107; RESP 16; TEMP 37.1; O2SAT 96; BMI 23.8
[2023-05-21 08:38] LABS: UTC Strep Screen (Rapid) Negative (Negative)
[2023-05-21 08:39] LABS: UTC Influenza A Antigen Negative (Negative); UTC Influenza B Antigen Negative (Negative)
--- NOTE | 2023-05-21 08:57 | EXP.UTC ---
Discharge Plan Disposition Patient Disposition: Home, Self-Care Condition: Good Prescriptions Prescriptions: New azithromycin [Zithromax] 250 mg tablet 250 mg PO UD DOSE PK Qty: 6 0RF Rx Instructions: Take two (2) tablets today, then one (1) tablet days #2 thru #5 [id number]-pmkrqhgkv-NP [Bromfed DM] 2-30-10 mg/5 mL Syrup 5 ml PO Q6H PRN (Reason: Cough) Qty: 240 0RF ondansetron 4 mg Tablet,Disintegrating 4 mg PO Q8H PRN (Reason: Nausea) Qty: 12 0RF No Action acyclovir 5 % cream 1 applic topical 5XD 4 Days Qty: 5 0RF [id number]-vmtsahsbh-PN [Bromfed DM] 2-30-10 mg/5 mL syrup 5 ml PO Q4-6H PRN (Reason: cold symptoms) Qty: 118 0RF azithromycin [Zithromax Z-Jarred] 250 mg tablet See Rx Instructions PO .COMPLEX Qty: 6 0RF Rx Instructions: For 250 mg dose pack: take 500 mg today (day 1), then 250 mg for 4 days (days 2-5) PO Referrals Follow up/Referrals: Morena Manley PA [Primary Care Provider] - See instructions Activity Restrictions/Add. Instructions Additional Instructions/Restrictions: Drink plenty of fluids. Take tylenol or ibuprofen for pain or fever. Take the medications as directed. Follow up with your regular doctor. GO TO THE ER FOR ANY WORSENING SYMPTOMS Clinical Impressions Clinical Impression: Acute viral syndrome, Sinusitis Stand Alone Forms Stand Alone Forms: Work/School Release Instructions Patient Instructions: DI for Sinusitis, DI for Viral Syndrome Discharge ED Provider: Dc Xiao [facility] [place] HPI General Stated complaint: cough fever ba zambrano congestion Mode of Arrival: Ambulatory Source of Information: Patient Limitations: No Limitations Time Seen by Provider: 05/21/23 08:56 Description of Symptoms (Recalled from Triage Doc. by RN): Patient reports fever, chills, body aches, sore throat, and ears hurt since Monday. HEENT Symptoms (Recalled from RN notes): Yes Resp Symptoms (Recalled from RN notes): No Skin Symptoms (Recalled from RN notes): No MS Symptoms (Recalled from RN notes): No Functional Status (Recalled from RN notes): wnl History of Present Illness Provider Complaint: She states that for the past 2 days she has had sore throat, cough, body aches, chills and fever. She has been exposed to rsv, flu and strep. Related Data Previous Rx's Medication Instructions Recorded acyclovir 5 % topical cream 1 applic topical 5XD 4 days #5 12/07/22 grams azithromycin 250 mg tablet See Rx Instructions PO .COMPLEX #6 12/07/22 (Zithromax Z-Jarred) tabs qskrcxzbkwpgiul-xpoaettojrdqmet-ZY 5 ml PO Q4-6H PRN cold symptoms 12/07/22 2 mg-30 mg-10 mg/5 mL oral syrup #118 mL (Bromfed DM) azithromycin 250 mg tablet 250 mg PO UD DOSE PK #6 tabs 05/21/23 (Zithromax) vnzqqnydknprayt-xotqlumflosobfi-EW 5 ml PO Q6H PRN Cough #240 mL 05/21/23 2 mg-30 mg-10 mg/5 mL oral syrup (Bromfed DM) ondansetron 4 mg disintegrating 4 mg PO Q8H PRN Nausea #12 tabs 05/21/23 tablet Allergies Allergy/AdvReac Type Severity Reaction Status Date / Time hydromorphone [HYDROMORPHONE] Allergy Unknown Verified 12/06/22 11:10 Worker's Comp Is this a Worker's Comp case?: No [facility] Disclaimer: The information contained in this section may have been updated after the patient was seen, as this information can be updated by other users. 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 caffeine: Yes ROS Obtained: Yes All systems reviewed & no additional complaints except as documented Constitutional Constitutional: Reports chills and Reports fever(s) Eyes Eyes: Denies eye discharge ENT Ears, Nose, Mouth, and Throat: Reports as per HPI Cardiovascular Cardiovascular: Denies chest pain Respiratory Respiratory: Denies chest congestion and Reports cough Gastrointestinal Gastrointestingal: Reports nausea; Denies abdominal pain, constipation, cramping, diarrhea or vomiting Musculoskeletal Musculoskeletal: Denies arthralgias Integumentary/Breasts Skin/Breast: Denies rash Neurologic Neurologic: Denies paresthesias Physical Exam General General appearance: alert and in no apparent distress Head Head exam: atraumatic, normocephalic and normal inspection Eye Eye exam: Present normal appearance, PERRL and EOMI ENT ENT exam: Present mucous membranes moist and normal external ear exam Expanded ENT Exam TM/Canal exam: Bilateral TM: erythema and bulging Nose exam: Absent sinus tenderness Mouth exam: Present normal external inspection; Absent drooling Teeth exam: Present normal inspection Throat exam: Present tonsillar erythema, tonsillomegaly and tonsillar exudate Neck Neck exam: Present normal inspection, full ROM and trachea midline; Absent tenderness, meningismus or lymphadenopathy Chest Chest inspection: Present normal inspection and symmetric chest wall rise; Absent tenderness Respiratory Respiratory exam: Present normal lung sounds bilaterally; Absent respiratory distress, wheezes or stridor Cardiovascular Cardiovascular exam: Present regular rate and normal rhythm; Absent systolic murmur or diastolic murmur Abdominal Exam Abdominal exam: Present soft and normal bowel sounds; Absent distention, tenderness, guarding, rebound or rigidity Extremities Exam Extremities exam: Present normal inspection and normal capillary refill; Absent calf tenderness Back Exam Back exam: Present normal inspection and full ROM; Absent tenderness, CVA tenderness (R) or CVA tenderness (L) Neurological Exam Neurological exam: Present alert, oriented X3 and CN II-XII intact Psychiatric Psychiatric exam: Present normal affect and normal mood Skin Skin exam: Present warm, dry, intact and normal color Medical Decision Making Medical Records Medical records reviewed: No I reviewed the patient's medical records. Keenan Inquiry Pt receiving controlled substance: No Vital Signs: 05/21/23 08:26 Temperature 98.8 F Temperature Source Oral Pulse Rate [Radial] 107 H Respiratory Rate 16 Blood Pressure [Right Arm] 120/81 Blood Pressure Mean [Right Arm] 94 Blood Pressure Source [Right Arm] Automatic Cuff Blood Pressure Position [Right Arm] Sitting 02 Sat by Pulse Oximetry 96 Oxygen Delivery Method Room Air Lab Data Lab results reviewed: Yes I reviewed the patient's lab results. Lab Results 05/21/23 08:29: Influenza Type A Ag Negative, Influenza Type B Ag Negative, Strep Scn Rapid Clinic Negative Orders (Tests/Meds): ORDERS Category Date Time Status Strep Screen Confirmation Stat Micro 05/21/23 08:29 Received
[2023-05-21 09:13] VITALS: BP 120/81; PULSE 107; RESP 16; TEMP 37.1; O2SAT 96
[2023-05-21 09:13] LABS: Adenovirus,PCR Not Detected (NotDetected); Coronavirus 19, PCR Not Detected (NotDetected); Coronavirus 229E Not Detected (NotDetected); Coronavirus OC43 Not Detected (NotDetected); Coronovirus HKU1,PCR Not Detected (NotDetected); Human Metapneumovirus Not Detected (NotDetected); Influenza A, PCR Not Detected (NotDetected); Influenza AH1, PCR Not Detected (NotDetected); Influenza AH3,PCR Not Detected (NotDetected); Influenza B, PCR Not Detected (NotDetected); Parainfluenza 1, PCR Not Detected (NotDetected); Parainfluenza 2, PCR Not Detected (NotDetected); Parainfluenza 3, PCR Not Detected (NotDetected); Parainfluenza 4, PCR Not Detected (NotDetected); Respiratory Syncytial Virus Not Detected (NotDetected); Rhinovirus/Enterovirus Not Detected (NotDetected)
[2023-05-21 10:40] LABS: Coronavirus NL63 Detected (NotDetected)
[2023-05-21 10:41] LABS: Influenza AH1, 2009 Detected (NotDetected)
== END 2023-05-21 09:13 | disposition home or self-care (01) ==
PROVIDERS: Emergency Provider Nurse Practitioner Family; PCP Physician Assistant
DX: J10.1 Influenza due to other identified influenza virus with other respiratory manifestations (principal); B34.2 Coronavirus infection, unspecified; J01.90 Acute sinusitis, unspecified; R05.9 Cough, unspecified; R07.0 Pain in throat; R50.9 Fever, unspecified; F17.210 Nicotine dependence, cigarettes, uncomplicated
CPT/HCPCS: 87632; 87635; 87804; 87880; 99212; 99214; G0463

== ENCOUNTER 2023-11-20 19:31 | Emergency (ER) | payer SELFPAY ==
[2023-11-20 19:32] VITALS: BP 109/58; PULSE 94; RESP 19; TEMP 36.9; O2SAT 100; BMI 23.0
[2023-11-20 20:33] LABS: Influenza A, PCR Not Detected (NotDetected); Influenza B, PCR Not Detected (NotDetected)
--- NOTE | 2023-11-20 20:36 | ED_ITS ---
<Statement entered by Krissy Granado DO - 11/20/23 23:04> I was consulted by the TOMI, and we discussed the complexity of the problems being addressed. I approved the treatment and management plan for this patient's care in the emergency department, thus performing a substantive portion of the medical decision making. Krissy Granado DO Discharge Plan Disposition Patient Disposition: Home, Self-Care Condition: Fair Prescriptions Prescriptions: No Action No Known Home Medications Referrals Follow up/Referrals: Morena Manley PA [Primary Care Provider] - See instructions Activity Restrictions/Add. Instructions Additional Instructions/Restrictions: Continue taking Tylenol alternating with Motrin every 4 hours as needed for symptoms. Follow-up with your PCP for any worsening signs or symptoms or return to the ER as needed Clinical Impressions Clinical Impression: Acute COVID-19 Stand Alone Forms Stand Alone Forms: Work/School Release Instructions Patient Instructions: DI for COVID-19 (Suspected or Confirmed ) Print Language Print Language: Urdu Discharge ED Provider: Krissy Granado General Adult HPI General Chief complaint: Fever Stated complaint: body ache st fever 101.7 covid exposure Time Seen by Provider: 11/20/23 20:36 Mode of Arrival: Ambulatory Source of Information: Patient Limitations: No Limitations Description of Symptoms (Recalled from ER Triage Doc. by RN): Pt states she her whole body hurts. She reports headache, ear pain, and that her throat hurts 4/10. She states she started feeling bad this morning and that it got worse at 1600. She reports having a fever 101.7 at home but denies taking any medication. 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 History of Present Illness HPI narrative: Patient presents for malaise myalgias and fever of 101.7. Patient began feeling poorly when she awoke this morning with myalgias and malaise and then noticed that she was feeling worse checked her temperature and it was 101.7. She is taking nothing [id number] for it she denies chest pain hemoptysis hematochezia melena nausea vomiting diarrhea but does endorse dry nonproductive cough Related Data Home Medications ?Medication ?Instructions ?Recorded ?Confirmed No Known Home Medications 11/20/23 11/20/23 Allergies Allergy/AdvReac Type Severity Reaction Status Date / Time hydromorphone [HYDROMORPHONE] Allergy Unknown Verified 11/20/23 20:[address] [facility] Disclaimer: The information contained in this section may have been updated after the marcie nt was seen, as this information can be updated by other users. 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 [place] Inquiry Pt receiving controlled substance: No Vital Signs: 11/20/23 19:32 Temperature 98.5 F Temperature Source Oral Pulse Rate [Right Brachial] 94 H Respiratory Rate 19 Blood Pressure [Right Arm] 109/58 L Blood Pressure Mean [Right Arm] 75 Blood Pressure Source [Right Arm] Manual Cuff/ Palpation 02 Sat by Pulse Oximetry 100 Oxygen Delivery Method Room Air Lab Data Lab results reviewed: Yes I reviewed the patient's lab results. Lab Results 11/20/23 20:24: SARS-CoV-2 (PCR) Detected A, Influenza A Untype (PCR) Not d etected, Influenza Type B (PCR) Not detected Orders (Tests/Meds): ED MEDICATIONS Discontinued Medications Generic Name Dose Route Start Last Admin Trade Name Freq PRN Reason Stop Dose Admin Acetaminophen 1,000 mg 11/20/23 20:31 Acetaminophen 500mg Tab PO 11/20/23 20:32 ONCE ONE Acetaminophen 1,000 mg 11/20/23 20:35 11/20/23 20:47 Acetaminophen 500mg Tab PO 11/20/23 20:36 1,000 mg ONCE ONE Administration Ondansetron HCl 4 mg 11/20/23 20:35 11/20/23 20:47 Ondansetron 4mg Odt SL 11/20/23 20:36 4 mg ONCE ONE Administration Oxycodone HCl 5 mg 11/20/23 20:31 Oxycodone 5mg Immediate Release Tablet PO 11/20/23 20:32 ONCE ONE ORDERS Category Date Time Status Rapid PCR Covid and Flu A/B Stat Lab 11/20/23 20:24 Completed Medical Decision Narrative: In summary patient is a 8-year-old female who presents to the emergency department for evaluation of legs myalgias fever dry nonproductive cough. Patient is hemodynamically stable upon arrival, afebrile currently at 98.5. Physical exam is remarkable for clear postnasal drip but no exudate, no cervical lymphadenopathy, auscultation of breath sounds reveals him to be clear and equal bilaterally to the bases without adventitious sounds.. Differential diagnosis includes viral or bacterial upper respiratory tract infection. Initial workup will be conducted with COVID and flu swabs. Initial interventions include Tylenol Toradol. Initial workup reviewed by me that her COVID is positive. Upon repeat evaluation patient did report significant improvement after ministration of Tylenol. Given this patient is appropriate for discharge with instructions on symptomatic treatment and strict return precautions. Critical Care Critical Care Time Critical Care Time: No
--- NOTE | 2023-11-20 20:40 | PC.NURSE ---
Charge notified of possible sepsis risk r/t HR, suspected infection, and pt reported fever. She is afebrile at this time.
[2023-11-20] MEDS: ONDANSETRON 4MG ODT 4 MG SL (20:47)
[2023-11-20] MEDS: ACETAMINOPHEN 500MG TAB 1000 MG PO (20:47)
[2023-11-20 21:13] LABS: Coronavirus 19, PCR Detected (NotDetected)
[2023-11-20 21:50] VITALS: BP 120/70; PULSE 78; RESP 15; TEMP 36.6; O2SAT 99
== END 2023-11-20 21:52 | disposition home or self-care (01) ==
PROVIDERS: Physician Assistant; Emergency Provider Emergency Medicine; PCP Physician Assistant
DX: U07.1 COVID-19 (principal); R05.9 Cough, unspecified; R07.0 Pain in throat; R53.81 Other malaise; M79.18 Myalgia, other site
CPT/HCPCS: 87636; 99283; Q0162

== ENCOUNTER 2024-09-05 15:18 | Outpatient (CLI) | payer BC, SELFPAY ==
[2024-09-05 17:06] LABS: Erythrocyte Sedimentation Rate 9 mm/hr (0-20)
[2024-09-06 10:32] LABS: Basophils # 0.1 K/mm3 (0-0.2); Basophils % 0.6 % (0.1-2.0); Eosinophils # 0.1 Kmm3 (0.0-0.4); Eosinophils % 0.7 % (0.1-12.0); Hematocrit 47.4 % (37.0-47.0); Hemoglobin 15.4 g/dL (12.2-16.2); Immature Granulocytes # 0.04 10^3uL; Immature Granulocytes % 0.4 %; Lymphocytes # 2.4 K/mm3 (0.7-4.5); Lymphocytes % 22.4 % (10-50); Mean Corpuscular HGB Conc 32.5 g/dL (31.8-35.4); Mean Corpuscular Hemoglobin 31.2 pg (27.0-31.2); Mean Corpuscular Volume 96.1 fl (81-99); Mean Platelet Volume 13.6 fl (7.4-10.4); Monocytes # 0.5 K/mm3 (0.1-1.0); Monocytes % 4.2 % (1.7-9.3); Neutrophils # 7.7 K/mm3 (1.8-7.8); Neutrophils % 71.7 % (37.0-80.0); Nucleated Red Blood Cells # 0 10^3/uL; Nucleated Red Blood Cells % 0 %; Platelet Count 211 K/mm3 (142-424); Red Blood Count 4.93 M/mm3 (4.20-5.40); Red Cell Distribution Width 12.8 % (11.5-17.5); Red Cell Distribution Width-SD 45.6 fL; White Blood Count 10.7 K/mm3 (4.8-10.8)
[2024-09-06 12:57] LABS: Chloride 108 mmol/L (98-107)
[2024-09-06 12:58] LABS: Albumin Level 4.9 g/dl (3.5-5.0); Potassium 4.6 mmoL/L (3.5-5.1); Sodium 141 mmol/L (136-145)
[2024-09-06 13:00] LABS: Blood Urea Nitrogen 14 mg/dl (7-17); Estimated Glomerular Filt Rate 93 ml/min (>60); GFR (African American) 112 ML/MIN (>60)
[2024-09-06 13:01] LABS: Alanine Aminotransferase 22 U/L (12-78); Albumin/Globulin Ratio 1.8 (1.1-1.8); Alkaline Phosphatase 77 U/L (38-126); Anion Gap 10.6 mEq/L (5-15); Aspartate Amino Transferase 23 U/L (14-36); Bilirubin,Total 0.9 mg/dl (0.2-1.3); Calcium 10.2 mg/dl (8.4-10.2); Carbon Dioxide 27 mmol/L (22.0-30.0); Chol/HDL Ratio 5.7 (1-3.5); Cholesterol 252 mg/dl (140-200); Globulin 2.7 g/dL (1.3-3.2); Glucose 79 mg/dl (74-100); HDL Cholesterol 44 mg/dl (40-60); Total Protein,Serum 7.6 g/dl (6.3-8.2); Triglycerides 123 mg/dl (30-150); VLDL Cholesterol 25 mg/dL (0-40)
[2024-09-06 13:12] LABS: Direct LDL Cholesterol 167.04 mg/dL (100-129)
[2024-09-06 13:32] LABS: Thyroid Stimulating Hormone 0.91 uIU/mL (0.465-4.68)
== END 2024-09-05 23:59 | disposition home or self-care (01) ==
LOC: LAB 15:18
PROVIDERS: PCP Family Medicine; Visit Provider Family Medicine
DX: R10.2 Pelvic and perineal pain (principal)
CPT/HCPCS: 36415; 80053; 80061; 84443; 85025; 85651

== ENCOUNTER 2024-09-06 11:04 | Outpatient (CLI) | payer BC, SELFPAY | END 2024-09-06 23:59 | disposition home or self-care (01) | LOC: LAB 11:06 | PROVIDERS: PCP Family Medicine; Visit Provider Family Medicine | DX: Z00.00 Encounter for general adult medical examination without abnormal findings (principal) | CPT/HCPCS: 80053; 80061; 84443; 85025 ==

== ENCOUNTER 2024-09-24 15:34 | Observation (INO) | payer BC, SELFPAY ==
--- NOTE | 2024-09-24 | CA_ITS ---
APPROVED REPORT Exam: Pharmacologic Technologist: Yulisa Pearson Ht: 5 ft 9 in Wt: 109 lbs BSA: 1.60 m2 HR: 55 bpm BP: 109/58 mmHg Stress Test Details Test: Lexiscan HR Resting HR: 55 bpm Max Heart Rate (APMHR): 180.547993 bpm Max HR Achieved: 118 bpm Target HR (85% APMHR): 153.991932 bpm % of APMHR: 65.56 Recovery HR: 78 bpm BP Resting BP: 109.0/58.0 mmHg Max BP: 120.0/75.0 mmHg Recovery BP: 104.0/47.0 mmHg ECG Resting ECG: Sinus bradycardia Stress ECG Conclusion Symptoms: Nausea, upset stomach, chest pressure Arrhythmias/Ectopy: - ST-T Changes: Downsloping ST depression Conclusion: Abnormal EKG response to Lexiscan. Electronically signed by : Nikole Huitron MD 09/27/2024 15:36:13
--- NOTE | 2024-09-24 10:30 | US_ITS ---
PROCEDURE: US TRANSVAGINAL CLINICAL INDICATION: abnormal bleeding COMPARISON: US US TRANSVAGINAL from 07/10/[address] ABDOMEN PELVIS WO CON from 04/16/2021 FINDINGS: Transvaginal sonographic images of the pelvis were obtained. UTERUS: 7.2cm x 4.4cmx 3.1cm anteverted with a combined endometrial thickness of . There are cystic areas within the uterine fundus that measure 1.4 cm x 0.9 cm and 1.2 cm by 0.5 cm, likely a collection of blood from her previous ablation. scar is noted LEFT OVARY: 2.2cmx1.6 cm x0.9cm with a volume of 1.7ml. There is a dominant follicle measuring 0.95 cm x 0.7 cm RIGHT OVARY: 4.7 cmx 2.9 cmx2.7 cm with a volume of 18.8ml. This be a collapsing corpus luteum measuring 2.5 cm x 1.8 cm x 2.3 cm Both ovaries are seen and appear normal. Doppler flow to both ovaries are seen. There is all amount of free fluid in the cul-de-sac. IMPRESSION: 1. Anteverted uterus normal in shape and size. The endometrium is not measured due to previous ablation. There are at least 3 cystic areas within the endometrial cavity that are likely a result of residual endometrium and collection of blood. The largest measures 1.4 cm 2. Both ovaries are seen and appear normal. The left ovary contains a 0.95 cm follicle. The right ovary contains a corpus luteum measuring up to 2.5 cm in size. 3. There is a small amount of fluid in the cul-de-sac, likely as result of a recent ovulation. Dictated by: Yannick Knutson MD 09/24/2024 15:38 Yannick Knutson MD in OV 09/24/2024 15:38
--- NOTE | 2024-09-24 11:15 | CA_ITS ---
APPROVED REPORT EXAM: Comprehensive 2D, Doppler, and color-flow Echocardiogram Dock Grader: Sayra Culp CRT Ht: 5 ft 9 in Wt: 109lbs BSA: 1.60 BP: 101/69 mmHg Indications: Abnormal ECG, Shortness of Breath 2D Dimensions LA Volume 23.30 mL LA Volume Index 14.30 mL/m2 (M/F) 16-34 M-Mode Dimensions RVDd 2.52 cm (0.9-2.6) LA Diam 2.23 cm (1.9-4.0) LVDd 4.88 cm (3.5-5.7) LVDs 3.54 cm (3.5-5.7) IVSd 0.59 cm (0.6-1.1) PWd 0.51 cm (0.6-1.1) EF (Teich) 53.20% FS 27.50% EDV (Teich) 111.70 mL TAPSE 1.85 (<1.7) ESV (Teich) 52.30 mL LV Diastology E Decel Time 110 (160-240 msec) E/A Ratio 1.41 MED A' 8.90 cm/s LAT A' 7.70 cm/s Aortic Valve AO Peak GR. 2.70 mmHg Mitral Valve MV A Velocity 44.0 (40-130 cm/s) E/A Ratio 1.41 Pulmonary Valve PV Peak Velocity 97.0 (50-150 cm/s) Tricuspid Valve TR P. Velocity 227.00 cm/s RAP Estimate 10.00 mmHg RVSP 30.70 mmHg Left Ventricle The left ventricle is normal size. The left ventricular systolic function is low normal. There is normal left ventricular wall thickness. There is normal LV segmental wall motion. The left ventricular diastolic function is normal. LVEF is 50%. Right Ventricle The right ventricle is normal size. The right ventricular systolic function is normal. Atria The left atrium size is normal. The right atrium size is normal. There is no Doppler evidence of interatrial shunt. Aortic Valve Aortic valve opens well. There is no aortic valvular stenosis. No aortic regurgitation is present. Mitral Valve The mitral valve is normal in structure. No evidence of mitral valve stenosis. Trace mitral regurgitation. Tricuspid Valve Tricuspid valve is grossly normal in structure and function. Trace tricuspid regurgitation. There is insufficient TR to estimate RVSP. Pulmonic Valve The pulmonary valve is normal in structure. Trace pulmonic regurgitation. Great Vessels The aortic root is normal in size. IVC is normal in size and collapses >50% with inspiration. Pericardium There is no pericardial effusion. Other Information Study Quality: Fair Conclusion Low normal LV systolic function (LVEF 50%). No significant valvular stenosis or regurgitation. Electronically signed by : Nikole Huitron MD 09/25/2024 13:08:25
--- NOTE | 2024-09-24 12:00 | NM_ITS ---
APPROVED REPORT Exam: Nuclear Stress Test Indication: soa..fatigue Patient Location: Outpatient Stress Tech: Yulisa Pearson ME Tech:Vika Jhaveri, RODERICKT, RT (R)(N) Ht: 5 ft 2 in Wt: 109 lbs Bra Size: 34a HR: 68 bpm BP: 109/58 mmHg BSA: 1.48 m2 TID: 1.05 BMI: 19.9 History: soa..fatigue Procedure: Patient received 0.4 mg of intravenous Lexiscan, resting heart rate 68 bpm, resting blood pressure 109/58 mmHg, with Lexiscan maximum heart rate achieved was 120 bpm which is 85 % of the maximum predicted heart rate and blood pressure was 120/75 mmHg. With Lexiscan, patient denied any complaint of chest pain. Cardiac Stress and Resting SPECT Images: Cardiac Stress and Resting SPECT images were obtained using technetium 99m Myoview 31.3 mCi stress and 10.81 mCi at rest. Resting and stress imaging in supine and prone positions demonstrate a medium sized, mild, partially reversible perfusion defect in the basal to mid septal LV wall. Gated imaging demonstrates mild reduction global LV systolic function. LVEF is calculated at 47%. Conclusion: Medium sized, mild, partially reversible perfusion defect in the basal to mid septal LV wall. Findings are suggestive of partial reversible ischemia. Gated imaging demonstrates mild reduction global LV systolic function. LVEF is calculated at 47%. Electronically signed by : Nikole Huitron MD 09/24/2024 15:09:56
[2024-09-24] MEDS: ISOTOPE MYOVIEW (PER STUDY) 1 DOSE IV (13:35)
[2024-09-24] MEDS: SODIUM CHLORIDE 0.9% 10ML SYR (RAD ONLY) 10 ML IV ×2 (13:35)
[2024-09-24] MEDS: REGADENOSON 0.4MG/5ML SYRINGE 0.4 MG IV (13:35)
[2024-09-24 16:00] VITALS: BP 95/58; PULSE 60; PULSE 70; RESP 17; TEMP 36.7; O2SAT 100
--- NOTE | 2024-09-24 16:08 | EXP.HP ---
History of Present Illness *Admission Date: 09/24/24 *Reason for visit:: SOA, failed stress test *History of present illness: Ms. Gutierrez is a 39-year-old female who has been having some abnormal heart rhythms in the outpatient setting. She presented today for significant testing with stress test. Stress test found to have significant ST depressions. Concerning for reversible ischemia. Was contacted by patient's PCP who was conducting the stress test and requested direct admission for further evaluation by cardiology and possible left heart cath. I agreed to admit for further management. On arrival to the floor, patient states she gets dyspneic with exertion. Had some fluttering and chest pressure during her stress test today. Has smoked for approximately 30 years. Smokes a half to a whole pack a day. Denies nausea or vomiting. Takes a statin for high cholesterol. Significant cardiac history in her family with multiple family members that smoke. Patient has no history of thyroid disease or diabetes. Denies any hypertension. Well-appearing on evaluation. Heart for at least 4 even without labs yet. Scoring for moderately suspicious history, significant ST deviation, age less than 45, 2 risk factors. [facility] Disclaimer: The information contained in this section may have been updated after the patient was seen, as this information can be updated by other users. 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 caffeine: Yes Have you lived/traveled outside [place] in past 30 days?: No Contact w/someone who lives/traveled outside US past 30 days?: No Exposure to someone with infectious disease in past 14 days?: No Do you have a fever (greater than 100.4 F or 38 C)?: No Have you tested positive for COVID-19?: No Exposed to someone with COVID-19 in past 14 days?: No Do you have a sore throat?: No Do you have a cough?: No Do you have any weakness?: No Do you have any diarrhea?: No Are you experiencing any unusual bleeding?: No Do you have any muscle aches/pain?: No Do you have any abdominal pain?: No Are you experiencing loss of taste or smell?: No Other Medical History Have you received the Flu Vaccine for this season: No Have you received the Pneumonia Vaccine: No Review of Systems Review of Systems Review of systems (narrative): 14 point review of systems performed, pertinent positives and negatives as per HPI Meds Home Medications and Allergies Home Medications ?Medication ?Instructions ?Recorded ?Confirmed ?Type atorvastatin 10 mg tablet (Lipitor) 10 mg PO DAILY #30 tabs 09/09/24 09/24/24 Rx New Prescriptions to Start Prescriptions: Allergies Allergy/AdvReac Type Severity Reaction Status Date / Time hydromorphone (HYDROMORPHONE) Allergy Unknown Verified 09/05/24 14:18 Exam Constitutional Constitutional: no acute distress, thin and cooperative *Routine HEENT Exam Head: Present normocephalic Eye: Present EOMI and PERRL ENT: Present mucous membranes moist *Routine Neck Exam Neck: Present supple; Absent lymphadenopathy *Routine Respiratory Exam Respiratory: Present CTA bilaterally; Absent respiratory distress, rhonchi, stridor, wheezes or crackles *Routine Cardiovascular Exam Cardiovascular: Present RRR *Routine Abdominal Exam Abdominal: Present soft and normoactive bowel sounds; Absent tenderness *Routine Rectal Exam Rectal:: deferred *Routine Genitalia Exam Genitalia:: deferred *Routine Extremities Exam Extremities: Absent cyanosis, clubbing or edema *Routine Skin Exam Skin: Present warm; Absent rash *Routine Neurological Exam Neurological: Present alert, oriented X3, CN II-XII intact and moving all extremities; Absent altered mental status Assessment and Plan *Assessment and plan (1) Abnormal EKG: Status: Acute Category: Medical Code(s): R94.31 - Abnormal electrocardiogram [ECG] [EKG] (2) Anginal equivalent: Status: Acute Category: Medical Code(s): I20.89 - Other forms of angina pectoris (3) Tobacco use: Status: Acute Category: Social Hx Code(s): Z72.0 - Tobacco use (4) Hyperlipidemia: Status: Acute Category: Medical Code(s): E78.5 - Hyperlipidemia, unspecified Plan 39-year-old female who came in for stress test, found to have significant abnormality and concern for reversible ischemia. Discussed case with PCP who requested admission for further evaluation by cardiology given elevated heart score and abnormal test findings. I agreed to admit for further care. Cardiology consulted to evaluate in the morning. Problems addressed as follows: Abnormal stress test ST depression - Echo obtained in stress testing, awaiting formal read -Reviewed EKG from stress test, shows significant ST depression in inferior leads - Heart score of at least 4 -Initial troponin less than 0.01; Labs with normal white count 8.4, hemoglobin 14.0. Electrolytes and kidney function nonactionable with BUN 8, creatinine 0.6, potassium 3.6 and sodium 137. - Repeat serial troponin every 3 hours x 3 ordered. TSH and A1c pending; Lipids ordered for the morning along with repeat CBC and CMP for the morning - Consulted to evaluate the morning. Initiate telemetry continuous monitoring - N.p.o. at midnight for anticipated left heart cath - Administered aspirin 325 mg once. Continue 81 mg daily. Hold on further antiplatelet therapy pending heart cath findings Tobacco use disorder: Encourage cessation. Discussed pros and cons of cessation. Patient declined patch at this time Hyperlipidemia: Lipid panel pending for the morning. Increase statin to 40 mg nightly DNR/DNI Regular diet, n.p.o. midnight
--- NOTE | 2024-09-24 16:33 | PC.NURSE ---
nurse made aware of abn b/p [id number]
[2024-09-24 16:34] VITALS: BMI 19.7
[2024-09-24 16:51] LABS: Alanine Aminotransferase 52 U/L (12-78); Albumin Level 4.5 g/dl (3.5-5.0); Albumin/Globulin Ratio 1.7 (1.1-1.8); Alkaline Phosphatase 66 U/L (38-126); Anion Gap 8.6 mEq/L (5-15); Aspartate Amino Transferase 53 U/L (14-36); Bilirubin,Total 1.1 mg/dl (0.2-1.3); Blood Urea Nitrogen 8 mg/dl (7-17); Carbon Dioxide 25 mmol/L (22.0-30.0); Chloride 107 mmol/L (98-107); Creatinine Clearance Estimated 96 mL/min (50-200); Estimated Glomerular Filt Rate 111 ml/min (>60); GFR (African American) 134 ML/MIN (>60); Globulin 2.6 g/dL (1.3-3.2); Glucose 86 mg/dl (74-100); Potassium 3.6 mmoL/L (3.5-5.1); Sodium 137 mmol/L (136-145); Total Protein,Serum 7.1 g/dl (6.3-8.2)
[2024-09-24 17:08] LABS: Troponin I < 0.01 ng/ml (0.00-0.034)
[2024-09-24 17:13] LABS: Basophils % 0.5 % (0.1-2.0); Eosinophils # 0.1 Kmm3 (0.0-0.4); Eosinophils % 1.7 % (0.1-12.0); Hematocrit 40.5 % (37.0-47.0); Immature Granulocytes # 0.02 10^3uL; Immature Granulocytes % 0.2 %; Lymphocytes # 2.7 K/mm3 (0.7-4.5); Lymphocytes % 31.7 % (10-50); Mean Corpuscular HGB Conc 34.6 g/dL (31.8-35.4); Mean Corpuscular Hemoglobin 30.9 pg (27.0-31.2); Mean Corpuscular Volume 89.4 fl (81-99); Mean Platelet Volume 13.5 fl (7.4-10.4); Monocytes # 0.5 K/mm3 (0.1-1.0); Monocytes % 5.7 % (1.7-9.3); Neutrophils # 5.1 K/mm3 (1.8-7.8); Neutrophils % 60.2 % (37.0-80.0); Nucleated Red Blood Cells # 0 10^3/uL; Nucleated Red Blood Cells % 0 %; Platelet Count 152 K/mm3 (142-424); Red Blood Count 4.53 M/mm3 (4.20-5.40); Red Cell Distribution Width 11.9 % (11.5-17.5); Red Cell Distribution Width-SD 38.8 fL; White Blood Count 8.4 K/mm3 (4.8-10.8)
[2024-09-24] MEDS: ASPIRIN 325MG TABLET 325 MG PO (17:22)
[2024-09-24 20:00] VITALS: PULSE 50
[2024-09-24 20:34] LABS: Troponin I < 0.01 ng/ml (0.00-0.034)
[2024-09-25] VITALS (15 sets, daily range): BP systolic 89–107; BP diastolic 51–68; PULSE 47–75; RESP 15–20; TEMP 36.7–36.9; O2SAT 90–100; BMI 19.6
--- NOTE | 2024-09-25 06:14 | PC.NURSE ---
Pt is A&O x4. Pt is on RA. Pt has had no acute changes. Pt has been NPO since [place] for a possible heart cath today. Pt resting in bed with call light in reach. Plan of care ongoing.
[2024-09-25 06:16] LABS: Basophils # 0.1 K/mm3 (0-0.2); Basophils % 0.5 % (0.1-2.0); Eosinophils # 0.3 Kmm3 (0.0-0.4); Hematocrit 38.2 % (37.0-47.0); Hemoglobin 13.2 g/dL (12.2-16.2); Immature Granulocytes # 0.04 10^3uL; Immature Granulocytes % 0.4 %; Lymphocytes # 2.9 K/mm3 (0.7-4.5); Mean Corpuscular HGB Conc 34.6 g/dL (31.8-35.4); Mean Corpuscular Volume 89.7 fl (81-99); Mean Platelet Volume 13.4 fl (7.4-10.4); Monocytes # 0.8 K/mm3 (0.1-1.0); Monocytes % 7.7 % (1.7-9.3); Neutrophils # 6.2 K/mm3 (1.8-7.8); Neutrophils % 60.4 % (37.0-80.0); Nucleated Red Blood Cells # 0 10^3/uL; Nucleated Red Blood Cells % 0 %; Platelet Count 145 K/mm3 (142-424); Red Blood Count 4.26 M/mm3 (4.20-5.40); White Blood Count 10.3 K/mm3 (4.8-10.8)
[2024-09-25 06:27] LABS: Albumin Level 3.9 g/dl (3.5-5.0); Chloride 111 mmol/L (98-107); Potassium 4.2 mmoL/L (3.5-5.1); Sodium 140 mmol/L (136-145)
[2024-09-25 06:30] LABS: Alanine Aminotransferase 40 U/L (12-78); Albumin/Globulin Ratio 1.6 (1.1-1.8); Alkaline Phosphatase 59 U/L (38-126); Anion Gap 8.2 mEq/L (5-15); Aspartate Amino Transferase 31 U/L (14-36); Bilirubin,Total 0.6 mg/dl (0.2-1.3); Blood Urea Nitrogen 14 mg/dl (7-17); Carbon Dioxide 25 mmol/L (22.0-30.0); Cholesterol 136 mg/dl (140-200); Creatinine Clearance Estimated 71 mL/min (50-200); Estimated Glomerular Filt Rate 79 ml/min (>60); GFR (African American) 96 ML/MIN (>60); Globulin 2.5 g/dL (1.3-3.2); Glucose 96 mg/dl (74-100); Magnesium 1.8 mg/dl (1.6-2.3); Total Protein,Serum 6.4 g/dl (6.3-8.2); Triglycerides 82 mg/dl (30-150); VLDL Cholesterol 16 mg/dL (0-40)
[2024-09-25 06:31] LABS: Chol/HDL Ratio 4.1 (1-3.5); HDL Cholesterol 33 mg/dl (40-60)
[2024-09-25 06:45] LABS: Direct LDL Cholesterol 73.44 mg/dL (100-129)
[2024-09-25] MEDS: ASPIRIN EC 81MG TABLET 81 MG PO (08:04)
[2024-09-25] MEDS: ATORVASTATIN 40MG TABLET 40 MG PO (08:04)
--- NOTE | 2024-09-25 10:37 | IR_ITS ---
APPROVED REPORT Patient Location: Inpatient Commercial Loan Collection Officer: BEHZAD Jules RT (R) PROCEDURES Left heart catheterization Left ventriculogram Selective coronary angiogram INDICATION Unstable angina, Numerous risk factors for coronary disease, Abnormal Myoview, Informed consent was obtained prior to the procedure. COMPLICATIONS NONE Estimated Blood Loss: LESS THAN 10 ML TECHNIQUE One percent lidocaine used to anesthetize the right anterior aspect of the wrist. The right radial artery was accessed via the Seldinger technique. A 6 Indian sheath was placed in the right radial artery. 2.5 mg of Verapamil, 800 mcg of nitroglycerin, 1mg Lidocaine and 5000 U Heparin were given through the arterial sheath. The JL3 catheter was also used to perform left heart catheterization, left ventriculogram and selective coronary angiogram. At the end of the procedure the sheath was removed good hemostasis was achieved using Traclet band, patient was transferred to the postop holding area in stable condition. ANGIOGRAPHIC RESULTS The left main artery Normal The left anterior descending artery Diffuse 10% luminal regularities The circumflex artery 10% luminal regularities The right coronary artery Large dominant with a mid vessel smooth 20 to 30% stenosis The GARCIA ventriculogram reveals Normal 65% The left ventricular end-diastolic pressure 10 mmHg IMPRESSION Coronary disease as described above none of which is flow-limiting Possible tobacco induced coronary artery spasm involving the mid right coronary artery Normal ejection fraction Normal LVEDP PLAN 1. Risk factor modification 2. Recommend antianginals using calcium channel blockers and or nitrates 3. Avoidance of tobacco products 4. LDL less than 55 achieved high intensity statin Electronically signed by : Yosvany Ravi MD 09/25/2024 12:15:03
--- NOTE | 2024-09-25 11:14 | EXP.CARD.CON ---
History of Present Illness History of Present Illness Consult date: 09/25/24 Requesting physician: Dc Lassiter Consult reason: chest pain Chief complaint: Chest pain and palpitations History of present illness: This is a 39-year-old white female who was admitted to the home due to an abnormal stress test. The patient recently noted had EKG changes consistent with ischemia and an abnormal Myoview imaging as well showing a medium sized, mild partially reversible perfusion defect in the basal to mid septal LV tapia consistent with reversible ischemia. While walking during the stress test the patient had chest tightness that radiated across her entire chest and was associated with racing of the heart and palpitations. She states that the tightness did get significant. It did not radiate. She also had nausea associated with the chest pain and shortness of breath. She states that she just did not feel well. The patient was admitted to the hospital with unstable angina and the abnormal stress test. [facility] Disclaimer: The information contained in this section may have been updated after the patient was seen, as this information can be updated by other users. Medical History (Updated 09/25/24 @ 11:18 by Margot Mccormick APRN) Tobacco use Family history of ischemic heart disease Hyperlipidemia Abnormal cardiovascular stress test Unstable angina Well adult exam delivery delivered No significant past medical history Surgical History Hx of cholecystectomy H/O tubal ligation Social History Smoking Status: Current every day smoker tobacco type: cigarettes packs per day: 1 second hand exposure: Yes alcohol intake: never substance use type: denies use current occupational status: other Travel in the last 8 weeks?: None household members: significant other, family and children housing: house 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 caffeine: Yes Review of Systems Review of Systems Review of systems:: pertinent systems reviewed and negative unless documented below Constitutional Constitutional: Reports system reviewed and no additional complaints, except as documented Eyes Eyes: Reports system reviewed and no additional complaints, except as documented ENT Ears, Nose, Mouth, and Throat: Reports system reviewed and no additional complaints, except as documented *Cardiovascular Cardiovascular: Reports system reviewed and no additional complaints, except as documented *Respiratory Respiratory: Reports system reviewed and no additional complaints, except as documented *Gastrointestinal Gastrointestinal: Reports system reviewed and no additional complaints, except as documented *Genitourinary Genitourinary: Reports system reviewed and no additional complaints, except as documented *Musculoskeletal Musculoskeletal: Reports system reviewed and no additional complaints, except as documented Integumentary/Breasts Skin/Breast: Reports system reviewed and no additional complaints, except as documented *Neurologic Neurologic: Reports system reviewed and no additional complaints, except as documented Psychiatric Psychiatric: Reports system reviewed and no additional complaints, except as documented Endocrine Endocrine: Reports system reviewed and no additional complaints, except as documented Hematologic/Lymphatic Hematologic/Lymphatic: Reports system reviewed and no additional complaints, except as documented Allergic/Immunologic Allergic/Immunologic: Reports system reviewed and no additional complaints, except as documented Exam Data for Last 24 hours Vital signs and Labs for Last 24 Hours: Temp Pulse Resp BP Pulse Ox O2 Del Method 98.0 F 53 L 16 89/57 L 98 Room Air 09/25/24 08:00 09/25/24 08:00 09/25/24 08:00 09/25/24 08:00 09/25/24 08:00 09/25/24 09:00 Laboratory Results - last 24 hr 09/24/24 16:26: WBC 8.4, RBC 4.53, Hgb 14.0, Hct 40.5, MCV 89.4, MCH 30.9, MCHC 34.6, RDW 11.9, Plt Count 152, MPV 13.5 H, Neut % (Auto) 60.2, Lymph % (Auto) 31.7, [place] % (Auto) 5.7, Eos % (Auto) 1.7, Baso % (Auto) 0.5, Neut # (Auto) 5.1, Lymph # (Auto) 2.7, [place] # (Auto) 0.5, Eos # (Auto) 0.1, Baso # (Auto) 0.0, Sodium 137, Potassium 3.6, Chloride 107, Carbon Dioxide 25, Anion Gap 8.6, BUN 8, Creatinine 0.60, Estimated Creat Clear 96, Estimated GFR 111, Est GFR ( Amer) 134, Glucose 86, Hemoglobin A1c 5.0, Calcium 10.0, Magnesium 2.0, Total Bilirubin 1.1, AST 53 H, ALT 52, Alkaline Phosphatase 66, Troponin I < 0.01, Total Protein 7.1, Albumin 4.5, Globulin 2.6, Albumin/Globulin Ratio 1.7, TSH 1.10 06/17/25 19:30: Troponin I < 0.01 09/25/24 05:42: WBC 10.3, RBC 4.26, Hgb 13.2, Hct 38.2, MCV 89.7, MCH 31.0, MCHC 34.6, RDW 12.0, Plt Count 145, MPV 13.4 H, Neut % (Auto) 60.4, Lymph % (Auto) 28.0, [place] % (Auto) 7.7, Eos % (Auto) 3.0, Baso % (Auto) 0.5, Neut # (Auto) 6.2, Lymph # (Auto) 2.9, [place] # (Auto) 0.8, Eos # (Auto) 0.3, Baso # (Auto) 0.1, Sodium 140, Potassium 4.2, Chloride 111 H, Carbon Dioxide 25, Anion Gap 8.2, BUN 14 D, Creatinine 0.80 D, Estimated Creat Clear 71, Estimated GFR 79, Est GFR ( Amer) 96 D, Glucose 96, Calcium 9.0, Magnesium 1.8, Total Bilirubin 0.6, AST 31 D, ALT 40, Alkaline Phosphatase 59, Total Protein 6.4, Albumin 3.9 D, Globulin 2.5, Albumin/Globulin Ratio 1.6, Triglycerides 82, Cholesterol 136 L, LDL Cholesterol Direct 73.44 L, VLDL Cholesterol 16, HDL Cholesterol 33 L, Cholesterol/HDL Ratio 4.1 H I & O for Last 24 hours: Intake & Output 09/22/24 09/23/24 09/24/24 09/25/24 23:59 23:59 23:59 23:59 Intake Total 222 / 222 0 / 0 Output Total 1400 / 1400 0 / 0 Balance -1178 / -1178 0 / 0 Weight 107 lb 12.8 oz 106 lb 12.8 oz Constitutional Constitutional: no acute distress and average body habitus *Routine HEENT Exam Head: Present normocephalic and atraumatic ENT: Present mucous membranes moist *Routine Neck Exam Neck: Present supple, full ROM and normal carotid upstroke; Absent JVD, carotid bruit or lymphadenopathy *Routine Respiratory Exam Respiratory: Present CTA bilaterally, normal respiratory effort, able to speak in complete sentences and symmetric chest movement *Routine Cardiovascular Exam Cardiovascular: Present RRR, Normal S1 and Normal S2; Absent murmur or gallop *Routine Abdominal Exam Abdominal: Present soft and normoactive bowel sounds; Absent tenderness, distended or organomegaly *Routine Extremities Exam Extremities: Present full ROM, pulses intact and normal capillary refill; Absent cyanosis, clubbing or edema *Routine Skin Exam Skin: Present intact and warm; Absent erythema *Routine Neurological Exam Neurological: Present alert, oriented X3 and CN II-XII intact; Absent sensory deficit or motor deficit Routine Psychiatric Exam Psychiatric: Present normal affect Meds Home Medications and Allergies Home Medications ?Medication ?Instructions ?Recorded ?Confirmed ?Type atorvastatin 40 mg tablet 40 mg PO DAILY 30 days #30 tabs 09/25/24 Rx New Prescriptions to Start Prescriptions: atorvastatin Dc Lassiter Allergies Allergy/AdvReac Type Severity Reaction Status Date / Time hydromorphone (HYDROMORPHONE) Allergy Unknown Verified 09/05/24 14:18 Assessment and Plan *Assessment and plan (1) Unstable angina: Status: Acute Category: Medical Code(s): I20.0 - Unstable angina (2) Abnormal cardiovascular stress test: Status: Acute Category: Medical Code(s): R94.39 - Abnormal result of other cardiovascular function study (3) Palpitations: Status: Acute Category: Medical Code(s): R00.2 - Palpitations (4) Hyperlipidemia: Status: Acute Qualifiers: Hyperlipidemia type: mixed hyperlipidemia Qualified Code(s): E78.2 - Mixed hyperlipidemia Category: Medical Code(s): E78.5 - Hyperlipidemia, unspecified (5) Tobacco use: Status: Acute Category: Social Hx Code(s): Z72.0 - Tobacco use (6) Family history of ischemic heart disease: Status: Acute Category: Medical Code(s): Z82.49 - Family history of ischemic heart disease and other diseases of the circulatory system Plan Plan: 1. The patient was admitted to the hospital with unstable angina and abnormal Myoview stress test. The patient continues to have symptoms intermittently. Will plan to proceed with left to evaluate coronary artery disease due to her unstable angina and abnormal Myoview stress test. 2. The patient has been educated the risk and benefits of proceeding with left cardiac catheterization. The patient verbalized understanding and was agreeable in proceeding with the procedure. 3. The patient will be n.p.o. in preparation for left cardiac catheterization. 4. Start aspirin 81 mg daily for unstable anginal and abnormal stress test. 5. Blood pressure is low. No room to add beta-janis or JONO/ARB due to her blood pressure being on the lower side. 6. Her LDL goal is less than 55. Her LDL is 73. Will start her Lipitor 40 mg p.o. nightly. 7. EF is 50% on echo with no significant valve disease. 8. Further recommendations will be made pending the patient's response to treatment the results of her left cardiac catheterization and echocardiogram today. Thank you for the opportunity to help participate in the care of this patient. All recommendations and orders are per Dr. Huitron. Addendum: [facility] shows: The left main artery Normal The left anterior descending artery Diffuse 10% luminal regularities The circumflex artery 10% luminal regularities The right coronary artery Large dominant with a mid vessel smooth 20 to 30% stenosis The GARCIA ventriculogram reveals Normal 65% The left ventricular end-diastolic pressure 10 mmHg IMPRESSION Coronary disease as described above none of which is flow-limiting Possible tobacco induced coronary artery spasm involving the mid right coronary artery Normal ejection fraction Normal LVEDP PLAN 1. Risk factor modification 2. Recommend antianginals using calcium channel blockers and or nitrates 3. Avoidance of tobacco products 4. LDL less than 55 achieved high intensity statin No further recommendations at this time from a cardiac standpoint. BP is too low to add beta-janis, JONO/ARB, nitrate or calcium channel janis. Patient can be discharged from a cardiac standpoint on Aspirin 81 mg daily and Lipitor 40 mg PO QHS.
--- NOTE | 2024-09-25 11:15 | PC.NURSE ---
Pt left floor for heart cath at this time.
[2024-09-25] MEDS: HEPARIN 1,000 UNITS/500ML NS (CATH LAB) 3000 UNIT IV (11:25)
[2024-09-25] MEDS: NITROGLYCERIN 800MCG/8ML SYR (CATH LAB) 800 MCG IA (11:25)
[2024-09-25] MEDS: LIDOCAINE 1% 10ML MDV 10 ML IJ (11:25)
[2024-09-25] MEDS: VERAPAMIL 2.5MG/ML 2ML VIAL 2.5 MG IV (11:26)
[2024-09-25] MEDS: HEPARIN 1,000 UNITS/ML 10ML VIAL (CATH LAB) 5000 UNIT IV (11:26)
[2024-09-25] MEDS: diphenhydrAMINE 50MG/ML VIAL 50 MG IV (11:26)
[2024-09-25] MEDS: 0.9 % SODIUM CHLORIDE 500 ML 25 ML IV (11:27)
[2024-09-25] MEDS: MIDAZOLAM HCL 1MG/ML 5ML VIAL 1 MG IV (12:13)
[2024-09-25] MEDS: FENTANYL 100MCG/2ML VIAL 50 MCG IV (12:13)
[2024-09-25] MEDS: IOPAMIDOL-370 (76%);100ML BOTTLE 50 ML IV (12:30)
--- NOTE | 2024-09-25 12:55 | P.DS_ITS ---
General Admission date:: 09/24/24 Discharge date: 09/25/24 HPI HPI HPI: Ms. Gutierrez is a 39-year-old female who has been having some abnormal heart rhythms in the outpatient setting. She presented today for significant testing with stress test. Stress test found to have significant ST depressions. Concerning for reversible ischemia. Was contacted by patient's PCP who was conducting the stress test and requested direct admission for further evaluation by cardiology and possible left heart cath. I agreed to admit for further management. On arrival to the floor, patient states she gets dyspneic with exertion. Had some fluttering and chest pressure during her stress test today. Has smoked for approximately 30 years. Smokes a half to a whole pack a day. Denies nausea or vomiting. Takes a statin for high cholesterol. Significant cardiac history in her family with multiple family members that smoke. Patient has no history of thyroid disease or diabetes. Denies any hypertension. Well-appearing on evaluation. Heart for at least 4 even without labs yet. Scoring for moderately suspicious history, significant ST deviation, age less than 45, 2 risk factors. Hospital Course Hospital Course Hospital Course: 39-year-old female who came in for stress test, found to have significant abnormality and concern for reversible ischemia. Discussed case with PCP who requested admission for further evaluation by cardiology given elevated heart score and abnormal test findings. I agreed to admit for further care. Cardiology consulted to evaluate in the morning. Patient taken for left heart cath. Found to have nonflow limiting disease that was mild. Stable discharge home with further management as an outpatient and risk factor modification. Problems addressed as follows: Abnormal stress test ST depression - Presented after having chest pressure and ST depressions with what appeared to be reversible ischemia on stress test. Cardiology consulted to evaluate patient. Heart score of at least 4 on presentation. Serial troponins less than 0.01. LDL acceptable at 74. A1c 5. Taken for heart cath in the morning, found to have minimal coronary artery disease with 10 to 30% stenoses in the LAD, circumflex, RCA. No significant occlusions necessitating intervention. Suspect possible tobacco induced coronary artery spasm involving the mid right coronary artery. Ejection fraction normal on echo. Normal LV end-diastolic pressure. Cardiology recommends risk factor modification. Continue Lipitor 40 mg daily. Continue aspirin 1 daily. Plan for close follow-up with further adjustment in medications and possible addition of antianginals if having chest pressure discomfort or hypertension. Blood pressure well-controlled at this time at 96/58. Will defer on initiating medications that may drop blood pressure given her very acceptable low normal blood pressure at this time. Tobacco use disorder: Encourage cessation. Discussed pros and cons of cessation. Patient declined patch at this time. Exam Data for Last 24 hours Vital signs and Labs for Last 24 Hours: Temp Pulse Resp BP Pulse Ox O2 Del Method 98.0 F 60 20 94/58 L 90 L Room Air 09/25/24 08:00 09/25/24 12:45 09/25/24 12:45 09/25/24 12:45 09/25/24 12:45 09/25/24 12:20 Laboratory Results - last 24 hr 09/24/24 16:26: WBC 8.4, RBC 4.53, Hgb 14.0, Hct 40.5, MCV 89.4, MCH 30.9, MCHC 34.6, RDW 11.9, Plt Count 152, MPV 13.5 H, Neut % (Auto) 60.2, Lymph % (Auto) 31.7, [place] % (Auto) 5.7, Eos % (Auto) 1.7, Baso % (Auto) 0.5, Neut # (Auto) 5.1, Lymph # (Auto) 2.7, [place] # (Auto) 0.5, Eos # (Auto) 0.1, Baso # (Auto) 0.0, Sodium 137, Potassium 3.6, Chloride 107, Carbon Dioxide 25, Anion Gap 8.6, BUN 8, Creatinine 0.60, Estimated Creat Clear 96, Estimated GFR 111, Est GFR ( Amer) 134, Glucose 86, Hemoglobin A1c 5.0, Calcium 10.0, Magnesium 2.0, Total Bilirubin 1.1, AST 53 H, ALT 52, Alkaline Phosphatase 66, Troponin I < 0.01, Total Protein 7.1, Albumin 4.5, Globulin 2.6, Albumin/Globulin Ratio 1.7, TSH 1.10 09/24/24 19:30: Troponin I < 0.01 09/25/24 05:42: WBC 10.3, RBC 4.26, Hgb 13.2, Hct 38.2, MCV 89.7, MCH 31.0, MCHC 34.6, RDW 12.0, Plt Count 145, MPV 13.4 H, Neut % (Auto) 60.4, Lymph % (Auto) 28.0, [place] % (Auto) 7.7, Eos % (Auto) 3.0, Baso % (Auto) 0.5, Neut # (Auto) 6.2, Lymph # (Auto) 2.9, [place] # (Auto) 0.8, Eos # (Auto) 0.3, Baso # (Auto) 0.1, Sodium 140, Potassium 4.2, Chloride 111 H, Carbon Dioxide 25, Anion Gap 8.2, BUN 14 D, Creatinine 0.80 D, Estimated Creat Clear 71, Estimated GFR 79, Est GFR ( Amer) 96 D, Glucose 96, Calcium 9.0, Magnesium 1.8, Total Bilirubin 0.6, AST 31 D, ALT 40, Alkaline Phosphatase 59, Total Protein 6.4, Albumin 3.9 D, Globulin 2.5, Albumin/Globulin Ratio 1.6, Triglycerides 82, Cholesterol 136 L , LDL Cholesterol Direct 73.44 L, VLDL Cholesterol 16, HDL Cholesterol 33 L, Cholesterol/HDL Ratio 4.1 H I & O for Last 24 hours: Intake & Output 09/22/24 09/23/24 09/24/24 09/25/24 23:59 23:59 23:59 23:59 Intake Total 222 / 222 0 / 0 Output Total 1400 / 1400 0 / 0 Balance -1178 / -1178 0 / 0 Weight 48.897 kg 48.444 kg Constitutional Constitutional: no acute distress, thin and cooperative *Routine HEENT Exam Head: Present normocephalic Eye: Present EOMI and PERRL ENT: Present mucous membranes moist *Routine Neck Exam Neck: Present supple; Absent lymphadenopathy *Routine Respiratory Exam Respiratory: Present CTA bilaterally; Absent rhonchi or wheezes *Routine Cardiovascular Exam Cardiovascular: Present RRR *Routine Abdominal Exam Abdominal: Present soft and normoactive bowel sounds; Absent tenderness *Routine Rectal Exam Patient deferred: visual exam *Routine Exam Patient deferred: external exam *Routine Extremities Exam Extremities: Absent cyanosis, clubbing or edema *Routine Skin Exam Skin: Present warm; Absent rash *Routine Neurological Exam Neurological: Present alert, oriented X3 and moving all extremities; Absent altered mental status Results Data Completed and Pending Labs on day of discharge: Labs from last 24 hours 09/25/24 09/24/2409/24/25 05:42 19:30 16:26 WBC 10.3 8.4 RBC 4.26 4.53 Hgb 13.2 14.0 Hct 38.2 40.5 MCV 89.7 89.4 MCH 31.0 30.9 MCHC 34.6 34.6 RDW 12.0 11.9 Plt Count 145 152 MPV 13.4 H 13.5 H Neut % (Auto) 60.4 60.2 Lymph % (Auto) 28.[address] [place] % (Auto) 7.7 5.7 Eos % (Auto) 3.0 1.7 Baso % (Auto) 0.5 0.5 Neut # (Auto) 6.2 5.1 Lymph # (Auto) 2.[address] [place] # (Auto) 0.8 0.5 Eos # (Auto) 0.3 0.1 Baso # (Auto) 0.1 0.0 Sodium 140 137 Potassium 4.2 3.6 Chloride 111 H 107 Carbon Dioxide 25 25 Anion Gap 8.2 8.6 BUN 14 D 8 Creatinine 0.80 D 0.60 Estimated Creat Clear 71 96 Estimated GFR 79 111 Est GFR ( Amer) 96 D 134 Glucose 96 86 Hemoglobin A1c 5.0 Calcium 9.0 10.0 Magnesium 1.8 2.0 Total Bilirubin 0.6 1.1 AST 31 D 53 H ALT 40 52 Alkaline Phosphatase 59 66 Troponin I < 0.01 < 0.01 Total Protein 6.4 7.1 Albumin 3.9 D 4.5 Globulin 2.5 2.6 Albumin/Globulin Ratio 1.6 1.7 Triglycerides 82 Cholesterol 136 L LDL Cholesterol Direct 73.44 L VLDL Cholesterol 16 HDL Cholesterol 33 L Cholesterol/HDL Ratio 4.1 H TSH 1.10 DS: Diagnosis Discharge Diagnosis (1) Unstable angina: Status: Acute Code(s): I20.0 - Unstable angina (2) Abnormal cardiovascular stress test: Status: Acute Code(s): R94.39 - Abnormal result of other cardiovascular function study (3) Palpitations: Status: Acute Code(s): R00.2 - Palpitations (4) Hyperlipidemia: Status: Acute Code(s): E78.5 - Hyperlipidemia, unspecified Qualifiers: Hyperlipidemia type: mixed hyperlipidemia Qualified Code(s): E78.2 - Mixed hyperlipidemia (5) Tobacco use: Status: Acute Code(s): Z72.0 - Tobacco use (6) Family history of ischemic heart disease: Status: Acute Code(s): Z82.49 - Family history of ischemic heart disease and other diseases of the circulatory system Meds Home Medications and Allergies Home Medications ?Medication ?Instructions ?Recorded ?Confirmed ?Type aspirin 81 mg tablet 81 mg PO DAILY #30 tabs 09/08 12/02 Rx atorvastatin 40 mg tablet 40 mg PO DAILY 30 days #30 t abs 09/25/24 Rx New Prescriptions to Start Prescriptions: Shreya Cortez atorvastatin Dc Lassiter Allergies Allergy/AdvReac Type Severity Reaction Status Date / Time hydromorphone (HYDROMORPHONE) Allergy Unknown Verified 09/05/24 14:18 Discharge Plan Disposition Patient Disposition: Home, Self-Care Condition: Fair Follow up Plan Follow up with: Peg Natarajan APRN [Primary Care Provider, Family Practice] - 10/02/24 10:20 am Nazario Huitron MD [Staff Physician, Cardiology] - 10/02/24 1:00 pm Prescriptions/Medication Reconciliation: New atorvastatin 40 mg Tablet 40 mg PO DAILY 30 Days Qty: 30 0RF aspirin 81 mg tablet 81 mg PO DAILY Qty: 30 3RF Discontinued atorvastatin [Lipitor] 10 mg tablet 10 mg PO DAILY Qty: 30 2RF Problem Reconciliation Problems Reviewed?: Yes Patient Discharge Instructions ACTIVITY: Continue current activity DIET: continue same diet and low fat, low cholesterol Patient Instructions: DI for Cardiac Catheterization, DI for Surgical Site Infection, DI for High Cholesterol-Adult Print Language: Portuguese Providers Primary Care Provider: Peg Natarajan Admit Provider: Dc Lassiter Attending Provider: Dc Lassiter
[2024-09-25] MEDS: ONDANSETRON 4MG/2ML VIAL 4 MG IV (13:38)
--- NOTE | 2024-09-26 10:03 | SW/DCPLANNER ---
Spoke with patient on the phone. Patient stated that she is doing well and that her arm is a little sore from the heart cath. Patient stated that she is aware of her upcoming appointments. Patient stated that she was able to get her new medicine picked up from clinic pharmacy. Patient stated that she has no concerns or questions at this time. Darrell Dorado
== END 2024-09-25 16:05 | disposition home or self-care (01) ==
LOC: 2ND 15:34
PROVIDERS: Internal Medicine; Admitting Provider Internal Medicine Adolescent Medicine; PCP Family Medicine; Visit Provider Internal Medicine Adolescent Medicine
PROC: 4A023N7 Measurement of Cardiac Sampling and Pressure, Left Heart, Percutaneous Approach (ICD-10-PCS; CPT 93452; principal; 2024-09-25 13:00)
DX: I25.118 Atherosclerotic heart disease of native coronary artery with other forms of angina pectoris (principal); R94.39 Abnormal result of other cardiovascular function study; R94.31 Abnormal electrocardiogram [ECG] [EKG]; R00.2 Palpitations; E78.5 Hyperlipidemia, unspecified; F17.210 Nicotine dependence, cigarettes, uncomplicated; Z79.82 Long term (current) use of aspirin; Z79.899 Other long term (current) drug therapy; Z88.5 Allergy status to narcotic agent; Z82.49 Family history of ischemic heart disease and other diseases of the circulatory system
CPT/HCPCS: 36415; 76830; 78452; 80053; 80061; 83036; 83735; 84443; 84484; 85025; 93017; 93018; 93270; 93306; 93458; 99152; A9502; C1725; C1769; G0378; J1200; J1644; J2003; J2250; J2405; J2785; J3010; J7040; Q9967

== ENCOUNTER 2025-03-23 11:50 | Emergency (ER) | payer BC, SELFPAY ==
[2025-03-23 11:52] VITALS: BP 134/80; PULSE 69; RESP 18; TEMP 36.8; O2SAT 97; BMI 23.0
[2025-03-23 11:56] VITALS: BP 134/90; PULSE 65; O2SAT 100
[2025-03-23 12:01] VITALS: BP 122/98; PULSE 71; O2SAT 97
--- NOTE | 2025-03-23 12:04 | XR_ITS ---
PROCEDURE INFORMATION: Exam: XR Left Foot Exam date and time: 03/23/2025 12:12 PM Age: 39 years old Clinical indication: Injury or trauma; Fall; Blunt trauma; Foot; Left TECHNIQUE: Imaging protocol: Radiologic exam of the left foot. Views: 3 or more views. COMPARISON: CR Lower leg L 03/23/2025 12:09 PM FINDINGS: Bones/joints: No acute fracture or dislocation. Large plantar calcaneal enthesophyte. Soft tissues: Normal. IMPRESSION: No acute fracture or dislocation.
--- NOTE | 2025-03-23 12:04 | XR_ITS ---
PROCEDURE INFORMATION: Exam: XR Right Knee Exam date and time: 03/23/2025 12:15 PM Age: 39 years old Clinical indication: Injury or trauma; Fall; Blunt trauma; Knee; Right; Additional info: Medial right knee bruise after fall TECHNIQUE: Imaging protocol: Radiologic exam of the right knee. Views: 3 views. COMPARISON: No relevant prior studies available. FINDINGS: Bones/joints: No acute fracture or dislocation. Soft tissues: Normal. IMPRESSION: No acute fracture or dislocation.
--- NOTE | 2025-03-23 12:04 | XR_ITS ---
PROCEDURE INFORMATION: Exam: XR Left Ankle Exam date and time: 03/23/2025 12:07 PM Age: 39 years old Clinical indication: Injury or trauma; Fall; Blunt trauma; Ankle; Left TECHNIQUE: Imaging protocol: Radiologic exam of the left ankle. Views: 3 or more views. COMPARISON: No relevant prior studies available. FINDINGS: Bones/joints: No acute fracture or dislocation. Large plantar calcaneal enthesophyte. Soft tissues: Normal. IMPRESSION: No acute fracture or dislocation.
--- NOTE | 2025-03-23 12:04 | XR_ITS ---
PROCEDURE INFORMATION: Exam: XR Left Tibia and Fibula Exam date and time: 03/23/2025 12:09 PM Age: 39 years old Clinical indication: Injury or trauma; Fall; Blunt trauma; Lower leg; Left TECHNIQUE: Imaging protocol: Radiologic exam of the left tibia and fibula. Views: 2 views. COMPARISON: No relevant prior studies available. FINDINGS: Bones/joints: No acute fracture or dislocation. Soft tissues: Normal. IMPRESSION: No acute fracture or dislocation.
--- NOTE | 2025-03-23 12:43 | ED_ITS ---
<Statement entered by Loy Pérez MD - 03/23/25 15:45> I was consulted by the TOMI, and we discusssed the complexity of the problems being adressed. I approved the treatment and management plan for this patient's care in the Emergency Department, thus performing a substantive portion of the medical decision making. Loy Pérez MD Discharge Plan Disposition Patient Disposition: Home, Self-Care Condition: Good Prescriptions Prescriptions: New methylprednisolone [Medrol (Jarred)] 4 mg tablets,dose pack See Rx Instructions .ROUTE .COMPLEX Qty: 21 0RF Rx Instructions: for 6 days meloxicam 15 mg tablet 15 mg PO DAILY Qty: 14 0RF Rx Instructions: Take after completing medrol dose pack No Action atorvastatin 40 mg tablet 40 mg PO DAILY 90 Days Qty: 90 2RF aspirin 81 mg tablet 81 mg PO DAILY Qty: 30 3RF Referrals Follow up/Referrals: Peg Natarajan APRN [Primary Care Provider, Family Practice] - See instructions Activity Restrictions/Add. Instructions Additional Instructions/Restrictions: You were seen for an ankle sprain. Please see your PCP this week. Take the medrol dose pack, after completing you can take meloxicam for 2 weeks. Clinical Impressions Clinical Impression: Ankle sprain Stand Alone Forms Stand Alone Forms: Work/School Release Instructions Patient Instructions: Ankle Sprain Print Language Print Language: Belarusian Discharge ED Provider: Loy Pérez General Adult HPI <DEVON Carter - Last Filed: 03/23/25 13:20> General Chief complaint: Extremity Injury, Lower Stated complaint: AO 03/20 Left & Right Leg Injuries Time Seen by Provider: 03/23/25 11:57 Mode of Arrival: Ambulatory Source of Information: Patient Description of Symptoms (Recalled from ER Triage Doc. by RN): patient presents after a fall on trying to get to her vehicle to go to the grocery. the patient fell off the last step of her porch twisting her left ankle. the patine has wrap-around ecchymosis of the left ankle and it is very tender to the touch. pulses noted in the extrmeity at a +2. History of Present Illness HPI narrative: Patient presents complaining of left ankle pain. She reports on she had a fall on her steps while carrying groceries. She denies hitting her head. She reports she is able to bear weight. She reports a bruise to her right knee as well. She has been taking extra strength Tylenol. MD complaint: Ankle pain Onset (ago): day(s) Location: left, right and lower extremity Radiation: other (into leg) Severity: moderate Consistency: constant Relieving factors: none Exacerbating factors: movement Associated symptoms: denies other symptoms Treatments prior to arrival: other (tylenol ) Related Data Previous Rx's ?Medication ?Instructions ?Recorded aspirin 81 mg tablet 81 mg PO DAILY #30 tabs 09/08 12/02 atorvastatin 40 mg tablet 40 mg PO DAILY 90 days #90 t abs 01/07/25 meloxicam 15 mg tablet 15 mg PO DAILY #14 tabs 03/10 08/02 methylprednisolone 4 mg tablets in See Rx Instructions PO .COMPLEX 03/23/25 a dose pack (Medrol (Jarred)) #21 tabs Allergies Allergy/AdvReac Type Severity Reaction Status Date / Time hydromorphone (HYDROMORPHONE) Allergy Unknown Verified 01/07/25 16:14 [facility] <DEVON Carter - Last Filed: 03/23/25 13:20> [facility] Disclaimer: The information contained in this section may have been updated after the patient was seen, as this information can be updated by other users. Medical History (Updated 03/23/25 @ 13:17 by DEVON Carter) Tobacco use Exercise intolerance Abnormal cardiovascular stress test Family history of ischemic heart disease Sinusitis Pyelonephritis Nephrolithiasis Left ureteral calculus Encounter for laboratory testing for COVID-19 virus History of COVID-19 Hyperlipidemia Unstable angina Well adult exam delivery delivered No significant past medical history Surgical History Hx of section History of cardiac cath Hx of cholecystectomy H/O tubal ligation Social History Smoking Status: Former smoker tobacco type: cigarettes packs per day: 1 second hand exposure: Yes alcohol intake: never substance use type: denies use current occupational status: other Travel in the last 8 weeks?: None household members: significant other, family and children housing: house 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 caffeine: Yes Have you lived/traveled outside [place] in past 30 days?: No Contact w/someone who lives/traveled outside [place] past 30 days?: No Exposure to someone with infectious disease in past 14 days?: No Do you have a fever (greater than 100.4 F or 38 C)?: No Have you tested positive for COVID-19?: No Exposed to someone with COVID-19 in past 14 days?: No Do you have a sore throat?: No Do you have a cough?: No Do you have any weakness?: No Do you have any diarrhea?: No Are you experiencing any unusual bleeding?: No Do you have any muscle aches/pain?: No Do you have any abdominal pain?: No Are you experiencing loss of taste or smell?: No Other Medical History Have you received the Flu Vaccine for this season: No Have you received the Pneumonia Vaccine: No <DEVON Carter - Last Filed: 03/23/25 13:20> ROS Obtained: Yes Systems reviewed as appropriate & no additional complaints except as documented Physical Exam <DEVON Carter - Last Filed: 03/23/25 13:20> General General appearance: alert and in no apparent distress Head Head exam: atraumatic and normocephalic Eye Eye exam: Present normal appearance and EOMI Chest Chest inspection: Present symmetric chest wall rise Respiratory Respiratory exam: Present normal lung sounds bilaterally; Absent wheezes or stridor Cardiovascular Cardiovascular exam: Present regular rate and normal rhythm; Absent systolic murmur Extremities Exam Extremities exam: Present other (Left medial and lateral ankle tenderness with edema and ecchymosis. Unable to plantar or dorsiflex the foot. Neurovascularly intact. Right medial knee contusion, B/L knees full range of motion, stable, neurovascularly. ) Neurological Exam Neurological exam: Present alert and oriented X3 Psychiatric Psychiatric exam: Present normal affect and normal mood Skin Skin exam: Present warm, dry and intact Medical Decision Making <DEVON Carter Last Filed: 03/23/25 13:20> Medical Records Screening: Per USPSTF and CDC recommendations, given the prevalence of disease in our region, it is our hospital?s policy to screen for HIV and viral Hepatitis for all patients aged 18 and over and those with ongoing risk factors. [facility] Inquiry Pt receiving controlled substance: No Vital Signs: 03/23/25 11:52 03/23/25 11:56 03/23/25 12:01 Temperature 98.2 F Temperature Source Oral Pulse Rate 65 71 Pulse Rate [Left Radial] 69 Respiratory Rate 18 Blood Pressure 134/90 122/98 H Blood Pressure [Right Arm] 134/80 Blood Pressure Mean [Right Arm] 98 Blood Pressure Source [Right Arm] Automatic Cuff Blood Pressure Position [Right Arm] Sitting 02 Sat by Pulse Oximetry 97 100 97 Oxygen Delivery Method Room Air Room Air Room Air 03/23/25 12:49 03/23/25 13:10 03/23/25 13:20 Temperature 98.0 F Temperature Source Pulse Rate 63 65 64 Pulse Rate [Left Radial] Respiratory Rate 16 Blood Pressure 126/72 111/80 111/80 Blood Pressure [Right Arm] Blood Pressure Mean [Right Arm] Blood Pressure Source [Right Arm] Blood Pressure Position [Right Arm] 02 Sat by Pulse Oximetry 100 99 Oxygen Delivery Method Room Air Room Air Orders (Tests/Meds): ORDERS Category Date Time Status Ankle XR - Left minimum 3 Views [XR ankle LT min 3V] Exams 03/23/25 12:04 Completed Stat Fibula/tibia XR left 2 views [XR tibia fibula LT 2V] Exams 03/23/25 12:04 Completed Stat Foot XR left minimum 3 views [XR foot LT min 3V] Stat Exams 03/23/25 12:04 Completed Knee XR right 3 views [XR knee RT 3V] Stat Exams 03/23/25 12:04 Completed Medical Decision Narrative: In summary patient is a 39-year-old female who presents the emergency department for evaluation of ankle pain. Patient is hemodynamically stable upon arrival, afebrile. Ecchymosis, edema and tenderness to the left ankle on exam. Differential diagnosis includes fracture, contusion, sprain. Initial workup will be conducted with X. Initial workup reviewed by me unremarkable. Given this patient can be discharged home with medrol followed by radha, PCP follow-up and walking boot. X-rays were personally reviewed by myself without acute findings. <Loy Pérez MD - Last Filed: 03/23/25 15:47> [facility] Conn Pt receiving controlled substance: No Vital Signs: 03/23/25 11:52 03/23/25 11:56 03/23/25 12:01 Temperature 98.2 F Temperature Source Oral Pulse Rate 65 71 Pulse Rate [Left Radial] 69 Respiratory Rate 18 Blood Pressure 134/90 122/98 H Blood Pressure [Right Arm] 134/80 Blood Pressure Mean [Right Arm] 98 Blood Pressure Source [Right Arm] Automatic Cuff Blood Pressure Position [Right Arm] Sitting 02 Sat by Pulse Oximetry 97 100 97 Oxygen Delivery Method Room Air Room Air Room Air 03/23/25 12:49 03/23/25 13:10 03/23/25 13:20 Temperature 98.0 F Temperature Source Pulse Rate 63 65 64 Pulse Rate [Left Radial] Respiratory Rate 16 Blood Pressure 126/72 111/80 111/80 Blood Pressure [Right Arm] Blood Pressure Mean [Right Arm] Blood Pressure Source [Right Arm] Blood Pressure Position [Right Arm] 02 Sat by Pulse Oximetry 100 99 Oxygen Delivery Method Room Air Room Air Orders (Tests/Meds): ORDERS Category Date Time Status Ankle XR - Left minimum 3 Views [XR ankle LT min 3V] Exams 03/23/25 12:04 Completed Stat Fibula/tibia XR left 2 views [XR tibia fibula LT 2V] Exams 03/23/25 12:04 Completed Stat Foot XR left minimum 3 views [XR foot LT min 3V] Stat Exams 03/23/25 12:04 Completed Knee XR right 3 views [XR knee RT 3V] Stat Exams 03/23/25 12:04 Completed Critical Care <DEVON Carter - Last Filed: 03/23/25 13:20> Critical Care Time Critical Care Time: No
[2025-03-23 12:49] VITALS: BP 126/72; PULSE 63; O2SAT 100
[2025-03-23 13:10] VITALS: BP 111/80; PULSE 65; O2SAT 99
[2025-03-23 13:20] VITALS: BP 111/80; PULSE 64; RESP 16; TEMP 36.7; O2SAT 100
== END 2025-03-23 13:29 | disposition home or self-care (01) ==
PROVIDERS: Emergency Provider Student in an Organized Health Care Education/Training Program; PCP Family Medicine
DX: S93.402A Sprain of unspecified ligament of left ankle, initial encounter (principal); E78.5 Hyperlipidemia, unspecified; X50.1XXA Overexertion from prolonged static or awkward postures, initial encounter; W10.8XXA Fall (on) (from) other stairs and steps, initial encounter; Y92.008 Other place in unspecified non-institutional (private) residence as the place of occurrence of the external cause; Z88.6 Allergy status to analgesic agent; Z79.82 Long term (current) use of aspirin; Z79.899 Other long term (current) drug therapy; Z87.891 Personal history of nicotine dependence
CPT/HCPCS: 73562; 73590; 73610; 73630; 99284